=== PATIENT | female | born 1945 ===

== ENCOUNTER 2016-08-05 14:06 | Inpatient (IN) | payer MEDICARE, MEDICAID ==
[2016-08-05] MEDS ORDERED: Aspirin 325 mg EC Tablets PO STA (16:34)
[2016-08-05 16:45] LABS: BASO % 0.3 % (0.0-2.0); EOS # 0.1 K/uL (0.0-0.7); EOS % 0.6 % (0.0-4.0); HEMATOCRIT 38.2 % (34.0-47.0); LYMPH # 1.4 K/uL (1.0-4.3); LYMPH % 14.8 % (20.0-40.0); MEAN CELL VOLUME 83.2 fL (81.0-99.0); MEAN CORPUSCULAR HGB CONC 33.6 g/dL (33.0-37.0); MEAN PLATELET VOLUME 9.4 fL (7.2-11.7); MONO # 0.6 K/uL (0.0-0.8); MONO % 6.2 % (0.0-10.0); RED CELL DISTRIBUTION WIDTH 14.1 % (11.5-14.5); WHITE BLOOD COUNT 9.3 K/uL (4.8-10.8)
[2016-08-05 16:50] LABS: CHLORIDE 94 mmol/L (98-107); SODIUM 138 mmol/L (132-148)
[2016-08-05 16:51] LABS: POTASSIUM 4.3 mmol/L (3.6-5.2)
[2016-08-05 16:53] LABS: ALB/GLOB RATIO 1.3 (1.0-2.1); ALKALINE PHOSPHATASE 93 U/L (38-126); ALT/SGPT 24 U/L (9-52); AST/SGOT 17 U/L (14-36); BILIRUBIN,TOTAL 0.8 mg/dL (0.2-1.3); BLOOD UREA NITROGEN 14 mg/dL (7-17); CARBON DIOXIDE 32 mmol/L (22-30); GFR AFRICAN-AMERICAN > 60; GLUCOSE,RANDOM 81 mg/dL (65-105); TOTAL PROTEIN 7.3 g/dL (6.3-8.3)
[2016-08-05 16:54] LABS: CALCIUM 9.1 mg/dl (8.6-10.4)
[2016-08-05 17:03] LABS: RBC URINE 2 /hpf (0-3); URINE BACTERIA FEW (<OCC); URINE BILIRUBIN NEGATIVE (NEGATIVE); URINE BLOOD NEGATIVE (NEGATIVE); URINE COLOR Yellow (YELLOW); URINE GLUCOSE (UA) NORMAL (Normal); URINE KETONE NEGATIVE (NEGATIVE); URINE LEUKOCYTE ESTERASE TRACE Leu/uL (Negative); URINE PROTEIN NEGATIVE (NEGATIVE); URINE UROBILINOGEN NORMAL mg/dL (0.2-1.0); WBC URINE 22 /hpf (0-5)
--- NOTE | 2016-08-05 17:31 | C.PDOC ---
History Of Present Illness The patient, a 70 y/o female whose PMHx includes Asthma, presents to the ED for evaluation of chest pain which began around 2 days ago. Patient also reports that her pain radiates to her back. Otherwise, she denies fever, chills, shortness of breath, cough, nausea, vomiting, upper/lower extremity numbness/ weakness. Time Seen by Provider: 08/05/16 15:54 Chief Complaint (Nursing): Shortness Of Breath History Per: Patient History/Exam Limitations: no limitations Onset/Duration Of Symptoms: Days (2) Current Symptoms Are (Timing): Still Present Quality: "Pain" Current Respiratory Medications: See Home Med List Associated Symptoms: denies: Fever, Chills, Bloody Cough, Productive Cough, Ankle/Leg Swelling Additional History Per: Patient Past Medical History Reviewed: Historical Data, Nursing Documentation, Vital Signs Vital Signs: Last Vital Signs Temp 98.0 F 08/05/16 15:14 Pulse 73 08/05/16 15:14 Resp 16 08/05/16 15:14 BP 135/60 08/05/16 15:14 Pulse Ox 95 08/05/16 17:33 - Medical History PMH: Asthma, Osteoporosis Surgical History: Appendectomy, Cholecystectomy Family History: States: Unknown Family Hx - Social History Hx Tobacco Use: No Hx Alcohol Use: No Hx Substance Use: No - Immunization History Hx Tetanus Toxoid Vaccination: No Hx Influenza Vaccination: Yes Hx Pneumococcal Vaccination: Yes Review Of Systems Except As Marked, All Systems Reviewed And Found Negative. Constitutional: Negative for: Fever, Chills Cardiovascular: Positive for: Chest Pain Respiratory: Negative for: Cough, Shortness of Breath Gastrointestinal: Negative for: Nausea, Vomiting Musculoskeletal: Positive for: Back Pain Neurological: Negative for: Weakness, Numbness Physical Exam - Physical Exam Appears: Non-toxic, No Acute Distress Skin: Normal Color, Warm, Dry Head: Atraumatic Eye(s): bilateral: Normal Inspection Oral Mucosa: Moist Neck: Normal ROM, Supple Chest: Symmetrical, No Deformity, No Tenderness Cardiovascular: Rhythm Regular, No Murmur Respiratory: Normal Breath Sounds, No Rales, No Rhonchi, No Wheezing, Other (+ speaking complete sentences) Back: Normal Inspection, No Vertebral Tenderness, No Paraspinal Tenderness Extremity: Normal ROM, No Tenderness, Capillary Refill (less than 2 seconds), No Deformity, No Swelling Pulses: Left Dorsalis Pedis: Normal, Right Dorsalis Pedis: Normal Neurological/Psych: Oriented x3, Normal Speech, Normal Cognition Gait: Steady ED Course And Treatment - Laboratory Results Result Diagrams: 08/05/16 16:40 08/05/16 16:40 ECG: Interpreted By Me, Viewed By Me ECG Rhythm: Sinus Rhythm ECG Interpretation: No Acute Changes Rate From EC O2 Sat by Pulse Oximetry: 95 (on RA) Pulse Ox Interpretation: Normal - Radiology CXR: Interpreted by Me CXR Interpretation: Yes: No Acute Disease Progress Note: labs, EKG, and CXR were ordered and reviewed. Patient received Aspirin PO. Awaiting lab results. The first set of cardiac enzymes - neg. Case was d/w who accepted patient to [facility] for observation. Disposition - Disposition Disposition: HOSPITALIZED Disposition Time: 18:57 Condition: FAIR - Clinical Impression Clinical Impression: Chest pain - PA / POWERHOUSE ELECTRICIAN / Resident Statement MD/DO has reviewed & agrees with the documentation as recorded. - Scribe Statement The provider has reviewed the documentation as recorded by the Scribe (Payton Case) All medical record entries made by the Scribe were at my direction and personally dictated by me. I have reviewed the chart and agree that the record accurately reflects my personal performance of the history, physical exam, medical decision making, and the department course for this patient. I have also personally directed, reviewed, and agree with the discharge instructions and disposition. Decision To Admit - Pt Status Changed To: Hospital Disposition Of: Observation - . Bed Request Type: Telemetry Admitting Physician: Khalida Quispe Patient Diagnosis: Chest pain
[2016-08-05 23:01] VITALS: RESP 20
[2016-08-06 07:29] LABS: HEMATOCRIT 38.4 % (34.0-47.0); MEAN CELL VOLUME 84.8 fL (81.0-99.0); MEAN CORPUSCULAR HEMOGLOBIN 27.5 pg (27.0-31.0); MEAN CORPUSCULAR HGB CONC 32.4 g/dL (33.0-37.0); MEAN PLATELET VOLUME 7.8 fL (7.2-11.7); RED CELL DISTRIBUTION WIDTH 14.2 % (11.5-14.5); WHITE BLOOD COUNT 7.2 K/uL (4.8-10.8)
[2016-08-06] MEDS ORDERED: Albuterol HFA 90 mcg/actuation (8 g) IH PRN (08:11)
[2016-08-06 08:13] LABS: THYROID STIMULATING HORMONE 2.48 mIU/L (0.46-4.68)
--- NOTE | 2016-08-06 10:34 | HP ---
CHIEF COMPLAINT: Chest pain. HISTORY OF PRESENT ILLNESS: The patient is a 70-year-old lady with past medical history of asthma, c grayson to the Emergency Room for evaluation of the chest pain. Pain, according to her, is going to her back. Denies fever. No nausea, vomiting, or diarrhea. No dizziness. No weakness. No hematuria, n o hematochezia. 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 The patient was seen on 08/05/16 in Emergency Room. PAST MEDICAL HISTORY: Asthma, osteoarthritis, appendectomy, cholecystectomy. FAMILY HISTORY: Father and mother noncontributory. HABITS: No smoking, no drugs, no ethanol. REVIEW OF SYSTEMS: The patient was seen and examined in the ER. At that moment, pain was not bad. No fever, no chills. No hematuria or hematochezia. No swelling of the leg. No coughing. No shortn ess of breath. Complaining about back pain. No numbness or weakness. All systems reviewed, found n egative except the above one. PHYSICAL EXAMINATION: VITAL SIGNS: Temperature 98, pulse 73, respiratory rate 16, blood pressure 135/60, and pulse oximetr y 95. HEENT: Head normocephalic, atraumatic. Eyes: PERRLA. Extraocular muscles intact. Conjunctivae cl ear. Nose patent. NECK: Supple. No carotid bruit, JVD or thyromegaly. CHEST: Bilaterally symmetrical. HEART: S1, S2 positive. LUNGS: Clear to auscultation. ABDOMEN: Soft. Bowel sounds present. No organomegaly. EXTREMITIES: No edema, no cyanosis. NEUROLOGIC: The patient is awake, alert, moving all 4 extremities. No focal deficit. LABORATORY DATA: White blood cells 9.3, hemoglobin 12.8, hematocrit 38.2, and platelets 218. Sodium 138, potassium 4.3, BUN 14, creatinine 0.7, glucose 81. ASSESSMENT AND PLAN: The patient is a 70-year-old lady with history of asthma came with chest pain. Chest x-ray done. It shows no acute disease. Aspirin given in Emergency Room. Cardiac enzymes are negative. The patient was put in telemetry. Cardiology consult called. The patient has history of osteoporosis, appendectomy, cholecystectomy. 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 The patient was see n in Emergency Room 08/05/16. Heart healthy diet given. Gastrointestinal and deep venous thrombosis prophylaxis. Repeat labs. We will follow up. Khalida Quispe MD cc: [id number] TT: 08/06/2016 10:33:49 tn
--- NOTE | 2016-08-06 10:44 | CP.PCM.CON ---
History of Present Illness - History of Present Illness History of Present Illness: Chest pain with shortness of breath for the last few days. Past Patient History - Infectious Disease Hx of Infectious Diseases: None - Past Medical History & Family History Past Medical History?: Yes - Past Social History Smoking Status: Never Smoked - CARDIAC Hx Cardiac Disorders: No - PULMONARY Hx Asthma: Yes - NEUROLOGICAL Hx Neurological Disorder: No - HEENT Hx HEENT Problems: No - RENAL Hx Chronic Kidney Disease: No - ENDOCRINE/METABOLIC Hx Endocrine Disorders: No - HEMATOLOGICAL/ONCOLOGICAL Hx Blood Disorders: No - INTEGUMENTARY Hx Dermatological Problems: No - MUSCULOSKELETAL/RHEUMATOLOGICAL Hx Falls: No Hx Osteoporosis: Yes - GASTROINTESTINAL Hx Gastrointestinal Disorders: No - GENITOURINARY/GYNECOLOGICAL Hx Genitourinary Disorders: No - PSYCHIATRIC Hx Psychophysiologic Disorder: No Hx Substance Use: No - SURGICAL HISTORY Hx Appendectomy: Yes Hx Cholecystectomy: Yes - ANESTHESIA Hx Anesthesia: Yes Hx Anesthesia Reactions: No Hx Malignant Hyperthermia: No Meds Allergies/Adverse Reactions: Allergies Allergy/AdvReac Type Severity Reaction Status Date / Time No Known Allergies Allergy Verified 08/05/16 14:15 - Medications Medications: Current Medications Albuterol (Ventolin Hfa 90 Mcg/Actuation (8 G)) 1 puff IH Q6H PRN PRN Reason: asthma Aspirin (Ecotrin) 81 mg PO DAILY HUGO Enoxaparin Sodium (Lovenox) 40 mg SC DAILY HUGO Famotidine (Pepcid) 40 mg PO DAILY HUGO Physical Exam - Head Exam Head Exam: NORMAL INSPECTION - Neck Exam Neck exam: Positive for: Normal Inspection - Respiratory Exam Respiratory Exam: Decreased Breath Sounds - Cardiovascular Exam Cardiovascular Exam: REGULAR RHYTHM - GI/Abdominal Exam GI & Abdominal Exam: Normal Bowel Sounds - Extremities Exam Extremities exam: Positive for: normal inspection - Neurological Exam Neurological exam: Oriented x3 Results - Vital Signs Recent Vital Signs: Last Vital Signs Temp 97.4 F L 08/06/16 07:00 Pulse 61 08/06/16 09:08 Resp 20 08/06/16 07:00 BP 116/71 08/06/16 07:00 Pulse Ox 96 08/06/16 07:00 - Labs Result Diagrams: 08/06/16 07:00 08/05/16 16:40 Labs: Laboratory Results - last 24 hr 08/05/16 08/06/16 22:14 07:00 WBC 7.2 RBC 4.52 Hgb 12.4 Hct 38.4 MCV 84.8 MCH 27.5 MCHC 32.4 L RDW 14.2 Plt Count 237 MPV 7.8 Total Creatine Kinase 24 L 27 L CK-MB (Mass) < 0.22 < 0.22 Troponin I, Quant < 0.0120 < 0.0120 Triglycerides 129 D Cholesterol 173 LDL Cholesterol Direct 99 HDL Cholesterol 41 TSH 3rd Generation 2.48 - EKG Data EKG comments: Normal sinus rhythm. Assessment & Plan (1) Chest pain Assessment and Plan: Patient with history of asthma who have/had normal LV systolic function with mild A R, Her work-up is negative so far. EKG is unremarkable. May be asthma exacerbation? Rule out ACS. Continue ASA. Status: Acute
[2016-08-06] MEDS: Enoxaparin 40 mg Syringe SC SCH (13:27)
--- NOTE | 2016-08-06 18:20 | RAD ---
PROCEDURE: CHEST RADIOGRAPH, 1 VIEW HISTORY: chest pain COMPARISON: Comparison chest dated 04/11/2016. FINDINGS: LUNGS: Poor inspiration with low lung volumes, mild crowded bronchovascular markings and mild bibasilar atelectasis. PLEURA: No pneumothorax or pleural fluid seen. CARDIOVASCULAR: Normal. OSSEOUS STRUCTURES: Mild multilevel degenerative spondylosis of the thoracic spine. Mild degenerative changes both shoulder girdles. VISUALIZED UPPER ABDOMEN: Normal. OTHER FINDINGS: None. IMPRESSION: Poor inspiration with low lung volumes, mild crowded bronchovascular markings and mild bibasilar atelectasis.
[2016-08-06] MEDS: Naproxen 550 mg Tab PO SCH (22:16)
[2016-08-07 08:43] VITALS: O2SAT 97
[2016-08-07] MEDS: Enoxaparin 40 mg Syringe SC SCH (09:15)
[2016-08-07] MEDS: Naproxen 550 mg Tab PO SCH (09:15)
--- NOTE | 2016-08-07 10:37 | PN ---
DATE: 08/06/2016 The patient is a 70-year-old female. The patient is seen and examined on the bedside. Feeling a little bit better. No nausea, vomiting, diarrhea. No hematuria, no hematochezia. No headache, no dizziness, no fever, no chills. PHYSICAL EXAMINATION: VITAL SIGNS: Temperature 97.1, pulse 63, blood pressure 99/62, respiratory rate 20. HEENT: Head normocephalic, atraumatic. Eyes: PERRLA. Extraocular muscles intact. Conjunctivae clear. Eyelids unremarkable. Nose patent. Mucous membranes moist. NECK: Supple. No carotid bruit, no JVD, no thyromegaly. CHEST: Bilaterally symmetrical. HEART: S1, S2 positive. LUNGS: Clear to auscultation. ABDOMEN: Soft. Bowel sounds positive. No organomegaly. EXTREMITIES: No edema, no cyanosis. NEUROLOGIC: The patient is awake, alert, moving all 4 extremities. No focal deficits. MEDICATIONS: Ecotrin, Lovenox, Pepcid, Ventolin. LABORATORIES: White blood cells 7.2, hemoglobin 12.4, hematocrit 38.4, platelets 234. Sodium 138, potassium 4.3, BUN 14, creatinine 0.7, AST 17, ALT 24. Triglyceride 129, cholesterol 173. ASSESSMENT AND PLAN: The patient is a 70-year-old lady with nitrites positive, urinary tract infection. Came with chest pain. Seen by Dr. Gregg Vivas, inspector of weights and measures. The patient has history of asthma, who has had normal left ventricular systolic function , Her workup is negative so far. EKG is unremarkable. Maybe asthma exacerbation, rule out acute coronary syndrome. Continue aspirin. As per Dr. Vivas, looks like pain is musculoskeletal, as per inspector of weights and measures. Osteoarthritis. We will give some nonsteroidal anti- inflammatory drug and see the affect. If inspector of weights and measures clears, we will discharge patient home tomorrow. Continue present treatment. We will follow up. Khalida Quispe MD cc: [id number] TT: 08/07/2016 10:37:05 Confirmation # [id number] Dictation # [id number] en MTDD
[2016-08-07 11:27] VITALS: BP 116/60; PULSE 67; TEMP 97.6
--- NOTE | 2016-08-07 21:04 | DS ---
CHIEF COMPLAINT: Chest pain. HISTORY OF PRESENT ILLNESS: The patient is a 70-year-old lady with past medical history of asthma. Came to Emergency Room for evaluation of the chest pain. According to patient, pain from the chest i s going to the back. Denies nausea, vomiting, diarrhea, fever, chills. We admitted the . Did cardi ology consult with Dr. Vivas. According to him, patient has history of asthma, has normal left ventr icular systolic function with mild AR. Her workup is negative so far. EKG is unremarkable. Maybe a sthma exacerbation. Rule out acute coronary syndrome. Continue aspirin. History of urinary tract i nfection. As per Dr. Vivas, looks like pain is musculoskeletal, osteoarthritis. I gave NSAIDs overn ight. The patient's pain got better. The patient was cleared by the sales associate for discharge home with home medication and with Motrin [id number] and follow up with the primary care physician. Discussion done with the patient, will follow up as outpatient. Khalida Quispe MD cc: [id number] TT: 08/07/2016 21:03:42 sn
--- NOTE | 2016-08-07 23:45 | CARD ---
APPROVED REPORT EKG Measurement Heart [id number] VT [id number] <Conclusion> Normal sinus rhythm Normal ECG
== END 2016-08-07 14:40 | disposition home or self-care (01) | DRG 202 ==
LOC: C.ER 14:06 → C.9E 18:58 → C.6T 19:42 → OBSVTOIN 08-06 21:40
PROVIDERS: ADMIT Internal Medicine; ATTEND Internal Medicine
DX: J45.901 Unspecified asthma with (acute) exacerbation (principal); N39.0 Urinary tract infection, site not specified; M19.90 Unspecified osteoarthritis, unspecified site; M81.0 Age-related osteoporosis without current pathological fracture; Z87.440 Personal history of urinary (tract) infections; R07.89 Other chest pain

== ENCOUNTER 2017-01-02 12:12 | Emergency (ER) | payer MEDICARE, MEDICAID ==
[2017-01-02 12:54] VITALS: RESP 18
[2017-01-02 13:07] VITALS: BP 142/80; PULSE 82; TEMP 98; O2SAT 97
[2017-01-02 14:02] LABS: RBC URINE 1 /hpf (0-3); URINE BACTERIA RARE (<OCC); URINE BILIRUBIN NEGATIVE (NEGATIVE); URINE BLOOD NEGATIVE (NEGATIVE); URINE COLOR Yellow (YELLOW); URINE GLUCOSE (UA) NORMAL (Normal); URINE HYALINE CAST 0-2 /lpf (0-2); URINE KETONE NEGATIVE (NEGATIVE); URINE LEUKOCYTE ESTERASE NEG Leu/uL (Negative); URINE PROTEIN NEGATIVE (NEGATIVE); URINE UROBILINOGEN NORMAL mg/dL (0.2-1.0); WBC URINE 2 /hpf (0-5)
--- NOTE | 2017-01-02 14:21 | C.PDOC ---
History Of Present Illness 71 yo female come in for evaluation of Right sided lower back pain for past 5 days associated with pain on urination. Otherwise, pt denies fever, chills, abd. pain, N/V, denies hematuria, vaginal irritation or discharges. Ambulate to ED for evaluation, not in any apparent distress. Time Seen by Provider: 01/02/17 12:58 Chief Complaint (Nursing): Female Genitourinary History Per: Patient Past Medical History Reviewed: Historical Data, Nursing Documentation, Vital Signs Vital Signs: Last Vital Signs Temp 98.0 F 01/02/17 13:03 Pulse 82 01/02/17 13:03 Resp 18 01/02/17 13:03 BP 142/80 01/02/17 13:03 Pulse Ox 97 01/02/17 13:03 - Medical History PMH: Asthma, Osteoporosis Denies: Diabetes, Chronic Kidney Disease Surgical History: Appendectomy, Cholecystectomy Family History: States: No Known Family Hx - Social History Hx Tobacco Use: No Hx Alcohol Use: No Hx Substance Use: No - Immunization History Hx Tetanus Toxoid Vaccination: No Hx Influenza Vaccination: Yes Hx Pneumococcal Vaccination: Yes Review Of Systems Except As Marked, All Systems Reviewed And Found Negative. Constitutional: Negative for: Fever, Chills ENT: Negative for: Throat Pain, Throat Swelling Gastrointestinal: Negative for: Nausea, Vomiting, Abdominal Pain, Diarrhea Genitourinary: Positive for: Dysuria, Frequency. Negative for: Incontinence, Hematuria, Vaginal Discharge Musculoskeletal: Negative for: Back Pain Skin: Negative for: Rash Neurological: Negative for: Weakness, Numbness, Altered Mental Status, Headache Physical Exam - Physical Exam Appears: Well, Non-toxic, No Acute Distress Skin: Normal Color, Warm, No Rash Throat: No Erythema Neck: Supple Gastrointestinal/Abdominal: Soft, No Tenderness, No Distention, No Guarding Back: No CVA Tenderness, Paraspinal Tenderness (Right sided ) Extremity: No Pedal Edema, No Deformity Neurological/Psych: Oriented x3, Normal Speech ED Course And Treatment O2 Sat by Pulse Oximetry: 97 Progress Note: On re-evaluation, pt is afebrile, hemodynamicaly stable. non- toxic. Tolerate Po well in ED. Neck: Supple. Abd: benign. Back: (-) CVA tenderness. UA w/(+)nitrates. Pt has clinical findings c/w UTI. Ucx-pending. Pt advised and ref. to f/u with PMD in 2-3 days for re-evaluation. Return to ED if any worsening or new changes. Disposition Counseled Patient/Family Regarding: Studies Performed, Diagnosis, Need For Followup, Rx Given - Disposition Referrals: Tequila Brown MD [Non-Staff] - Disposition Time: 13:45 Condition: STABLE Additional Instructions: Encourage fluids Cranberry supplement take medication as prescribed Follow up with PMD in 2-3 days for re-evaluation. return to ED at any time if any worsening or new changes. Prescriptions: Ciprofloxacin [Cipro] 1 tab PO BID #14 tab Cranberry Fruit Extract [Cranberry] 500 mg PO BID #30 capsule Instructions: Urinary Tract Infection in Women (ED) Forms: [facility] (Latvian) Print Language: DOMINICAN - Clinical Impression Clinical Impression: UTI (urinary tract infection)
== END 2017-01-02 14:34 | disposition home or self-care (01) ==
LOC: C.ER 12:12
DX: N39.0 Urinary tract infection, site not specified (principal)

== ENCOUNTER 2017-08-03 12:18 | Emergency (ER) | payer MEDICARE, MEDICAID ==
[2017-08-03 12:21] VITALS: RESP 20
--- NOTE | 2017-08-03 12:58 | C.PDOC ---
History Of Present Illness 71 year old female with PMHx of asthma non smoker presents to the ED for evaluation of increased difficulty breathing, non productive cough, chills, body aches. Patient admits to SOB even at rest. Patient lives with her daughter and has been at the house all week due to feeling weak. Patient denies fever, nausea, vomit, diarrhea, back pain, numbness. Chief Complaint (Nursing): Chest Pain History Per: Patient History/Exam Limitations: no limitations Onset/Duration Of Symptoms: Days Current Symptoms Are (Timing): Still Present Quality: "Pain" Modifying Factors: None Exacerbating Factors: None Alleviating Factors: None Recent travel outside of the [place]: No Additional History Per: Patient Past Medical History Reviewed: Historical Data, Nursing Documentation, Vital Signs Vital Signs: Last Vital Signs Temp 97.8 F 08/03/17 16:06 Pulse 83 08/03/17 16:06 Resp 20 08/03/17 16:06 BP 124/76 08/03/17 16:06 Pulse Ox 98 08/04/17 09:12 - Medical History PMH: Asthma, Osteoporosis Denies: Diabetes, Chronic Kidney Disease Surgical History: Appendectomy, Cholecystectomy Family History: States: Unknown Family Hx - Social History Hx Tobacco Use: No Hx Alcohol Use: No Hx Substance Use: No - Immunization History Hx Tetanus Toxoid Vaccination: No Hx Influenza Vaccination: Yes Hx Pneumococcal Vaccination: Yes Review Of Systems Constitutional: Negative for: Fever, Chills ENT: Negative for: Throat Pain Respiratory: Positive for: Cough, Shortness of Breath Gastrointestinal: Negative for: Nausea, Vomiting, Abdominal Pain Musculoskeletal: Negative for: Back Pain Skin: Negative for: Rash Neurological: Positive for: Weakness. Negative for: Numbness Physical Exam - Physical Exam Appears: Non-toxic, No Acute Distress Skin: Normal Color, Warm, Dry Head: Atraumatic, Normacephalic Eye(s): bilateral: Normal Inspection Nose: No Discharge Oral Mucosa: Moist Neck: Normal ROM, Supple Chest: Symmetrical Cardiovascular: Rhythm Regular, No Murmur Respiratory: Decreased Breath Sounds (mild), No Rales, No Rhonchi, No Wheezing Gastrointestinal/Abdominal: Soft, No Tenderness, No Guarding, No Rebound Extremity: Normal ROM, No Tenderness, No Swelling Neurological/Psych: Oriented x3 Gait: Steady ED Course And Treatment - Laboratory Results Result Diagrams: 08/03/17 13:05 08/03/17 13:05 ECG: Interpreted By Me, Viewed By Me ECG Rhythm: Sinus Rhythm ECG Interpretation: Normal Interpretation Of ECG: No ectopy, no acute ST or T wave abnormalities Rate From EC O2 Sat by Pulse Oximetry: 98 (On RA) Pulse Ox Interpretation: Normal Medical Decision Making Medical Decision Making: Impression: URI, rule out pneumonia, mild broncho spams Plan: * EKG * CXR * Labs * Blood culture * Nebulizer treatment * UA Patient states she feels better after reevaluation and will be D/C home with a diagnosis of bronchitis. Disposition - Disposition Referrals: [facility] [Outside] Disposition: HOME/ ROUTINE Disposition Time: 09:13 Condition: GOOD Prescriptions: Azithromycin [Zithromax] 250 mg PO DAILY #6 tab Instructions: Acute Bronchitis Forms: [facility] (Danish) Print Language: [place] - Clinical Impression Clinical Impression: Bronchitis - Scribe Statement The provider has reviewed the documentation as recorded by the Scribe Andre Moore All medical record entries made by the Scribe were at my direction and personally dictated by me. I have reviewed the chart and agree that the record accurately reflects my personal performance of the history, physical exam, medical decision making, and the department course for this patient. I have also personally directed, reviewed, and agree with the discharge instructions and disposition.
[2017-08-03 13:10] LABS: BASO % 0.3 % (0.0-2.0); EOS # 0.1 K/uL (0.0-0.7); EOS % 0.7 % (0.0-4.0); HEMOGLOBIN 13.1 g/dL (11.0-16.0); LYMPH # 1.3 K/uL (1.0-4.3); LYMPH % 16.8 % (20.0-40.0); MEAN CELL VOLUME 84.5 fL (81.0-99.0); MEAN CORPUSCULAR HEMOGLOBIN 28.4 pg (27.0-31.0); MEAN CORPUSCULAR HGB CONC 33.6 g/dL (33.0-37.0); MEAN PLATELET VOLUME 8.4 fL (7.2-11.7); MONO # 0.6 K/uL (0.0-0.8); MONO % 7.5 % (0.0-10.0); NEUT # 5.7 K/uL (1.8-7.0); NEUT % 74.7 % (50.0-75.0); RBC 4.61 Mil/uL (3.80-5.20); RED CELL DISTRIBUTION WIDTH 14.2 % (11.5-14.5); WHITE BLOOD COUNT 7.7 K/uL (4.8-10.8)
[2017-08-03 13:24] LABS: ALB/GLOB RATIO 1.3 (1.0-2.1); ALBUMIN 4.2 g/dL (3.5-5.0); ALT/SGPT 17 U/L (9-52); AST/SGOT 19 U/L (14-36); BLOOD UREA NITROGEN 15 mg/dL (7-17); CALCIUM 9.1 mg/dl (8.6-10.4); GFR AFRICAN-AMERICAN 59; GFR NON-AFRICAN AMERICAN 49
[2017-08-03 13:43] LABS: SQUAMOUS EPITHIAL 3 /hpf (0-5); URINE BILIRUBIN NEGATIVE (NEGATIVE); URINE BLOOD NEGATIVE (NEGATIVE); URINE CLARITY Clear (Clear); URINE COLOR Yellow (YELLOW); URINE GLUCOSE (UA) NORMAL (Normal); URINE LEUKOCYTE ESTERASE NEG Leu/uL (Negative); URINE PROTEIN 1+ mg/dL (NEGATIVE); URINE UROBILINOGEN NORMAL mg/dL (0.2-1.0)
--- NOTE | 2017-08-03 14:56 | RAD ---
PROCEDURE: CHEST RADIOGRAPH, 1 VIEW HISTORY: SOB COMPARISON: 08/05/2016 FINDINGS: LUNGS: Clear. PLEURA: No pneumothorax or pleural fluid seen. CARDIOVASCULAR: No radiographic findings to suggest acute or significant cardiovascular disease. OSSEOUS STRUCTURES: No significant abnormalities. VISUALIZED UPPER ABDOMEN: Normal. OTHER FINDINGS: None. IMPRESSION: No active disease. No acute/significant interval changes.
[2017-08-03 16:08] VITALS: BP 124/76; PULSE 83; TEMP 97.8
[2017-08-04 09:13] VITALS: O2SAT 98
== END 2017-08-03 16:06 | disposition home or self-care (01) ==
LOC: C.ER 12:18
DX: J40 Bronchitis, not specified as acute or chronic (principal)

== ENCOUNTER 2017-11-29 12:56 | Inpatient (IN) | payer MEDICARE, MEDICAID ==
[2017-11-29 13:18] VITALS: BMI 28.3
--- NOTE | 2017-11-29 13:34 | C.PDOC ---
History Of Present Illness 72-year-old female presents to the ER with complaints of cough, fever, SOB, and chest pain, on and off for the past 3 weeks. Patient is also complaining of diarrhea and urinary frequency. Today she developed a headache, felt light- headed, and noted the chest pain worsened so she came to the ER for further evaluation. Patient denies having any PMHx. Also denies dizziness, palpitations , visual changes, weakness, nausea, vomiting, or other associated symptoms. Time Seen by Provider: 11/29/17 13:21 Chief Complaint (Nursing): Chest Pain History Per: Patient History/Exam Limitations: no limitations Onset/Duration Of Symptoms: Days Current Symptoms Are (Timing): Still Present Past Medical History Reviewed: Historical Data, Nursing Documentation, Vital Signs Vital Signs: Last Vital Signs Temp 97.9 F 11/29/17 13:13 Pulse 65 11/29/17 15:27 Resp 18 11/29/17 15:27 BP 115/62 11/29/17 15:27 Pulse Ox 100 11/29/17 15:27 - Medical History PMH: Asthma, Osteoporosis Denies: Diabetes, Chronic Kidney Disease Surgical History: Appendectomy, Cholecystectomy Family History: States: Unknown Family Hx - Social History Hx Tobacco Use: No Hx Alcohol Use: No Hx Substance Use: No - Immunization History Hx Tetanus Toxoid Vaccination: No Hx Influenza Vaccination: No Hx Pneumococcal Vaccination: No Review Of Systems Except As Marked, All Systems Reviewed And Found Negative. Constitutional: Positive for: Fever Eyes: Negative for: Vision Change Cardiovascular: Positive for: Chest Pain, Light Headedness Respiratory: Positive for: Cough, Shortness of Breath Gastrointestinal: Negative for: Nausea, Vomiting Neurological: Positive for: Headache. Negative for: Weakness, Dizziness Physical Exam - Physical Exam Appears: Non-toxic, No Acute Distress Skin: Normal Color, Warm, Dry Head: Atraumatic, Normacephalic Eye(s): bilateral: Normal Inspection, PERRL, EOMI Nose: Normal Oral Mucosa: Moist Neck: Normal ROM, Supple Chest: Symmetrical Cardiovascular: Rhythm Regular, No Murmur Respiratory: Normal Breath Sounds, No Rales, No Rhonchi, No Wheezing Gastrointestinal/Abdominal: Soft, No Tenderness Extremity: Bilateral: Atraumatic, Normal Color And Temperature, Normal ROM Pulses: Left Radial: Normal, Right Radial: Normal Neurological/Psych: Oriented x3, Normal Speech, Normal Cranial Nerves (2-12 intact), Normal Motor, Normal Sensation Gait: Steady ED Course And Treatment - Laboratory Results Result Diagrams: 11/29/17 13:39 11/29/17 13:39 Lab Interpretation: Abnormal (BUN 54, Cr 7.0, changed from last July when they were normal.) ECG: Interpreted By Me, Viewed By Me ECG Rhythm: Sinus Rhythm (NSR at 75 bpm, no acute changes) ECG Interpretation: No Acute Changes Rate From EC O2 Sat by Pulse Oximetry: 96 - Radiology CXR: Viewed By Me, Read By Radiologist CXR Interpretation: Yes: No Acute Disease Reevaluation Time: 15:48 Reassessment Condition: Improved (Patient did have chest qand back pain improved with Morphine IV.) - Physician Consult Information Time Consulting Physician Contacted: 15:51 Physician Contacted: Naun Case Outcome Of Conversation: Patient to be admitted for acute renal failure. Medical Decision Making Medical Decision Making: Time: 13:25 Initial Plan: --Blood work --Urinalysis --Chest x-ray --EKG Disposition - Disposition Disposition: HOSPITALIZED Disposition Time: 15:52 Condition: SERIOUS - POA Present On Arrival: None - Clinical Impression Clinical Impression: Acute renal failure - Scribe Statement The provider has reviewed the documentation as recorded by the Jaret Vang Provider Attestation: All medical record entries made by the Jaret were at my direction and personally dictated by me. I have reviewed the chart and agree that the record accurately reflects my personal performance of the history, physical exam, medical decision making, and the department course for this patient. I have also personally directed, reviewed, and agree with the discharge instructions and disposition.
--- NOTE | 2017-11-29 13:39 | RAD ---
Date of service: 11/29/2017 PROCEDURE: CHEST RADIOGRAPH, 1 VIEW HISTORY: chest pain COMPARISON: Chest radiograph dated 08/03/2017. FINDINGS: LUNGS: Clear. PLEURA: No pneumothorax or pleural fluid seen. CARDIOVASCULAR: Atherosclerotic aortic calcifications. Cardiomediastinal silhouette stably enlarged. OSSEOUS STRUCTURES: Unchanged. VISUALIZED UPPER ABDOMEN: Normal. OTHER FINDINGS: None. IMPRESSION: No active disease.
[2017-11-29 13:49] LABS: BASO % 0.2 % (0.0-2.0); EOS % 0.4 % (0.0-4.0); HEMOGLOBIN 12.4 g/dL (11.0-16.0); LYMPH # 0.8 K/uL (1.0-4.3); LYMPH % 9.3 % (20.0-40.0); MEAN CORPUSCULAR HEMOGLOBIN 28.3 pg (27.0-31.0); MEAN CORPUSCULAR HGB CONC 34.6 g/dL (33.0-37.0); MONO # 0.5 K/uL (0.0-0.8); MONO % 6.3 % (0.0-10.0); NEUT # 6.9 K/uL (1.8-7.0); NEUT % 83.8 % (50.0-75.0); NRBC % 0.1 % (0.0-2.0); PLATELET COUNT 273 K/uL (130-400); RBC 4.41 Mil/uL (3.80-5.20); RED CELL DISTRIBUTION WIDTH 14.1 % (11.5-14.5); WHITE BLOOD COUNT 8.2 K/uL (4.8-10.8)
[2017-11-29 13:52] LABS: MEAN CELL VOLUME 81.8 fL (81.0-99.0)
[2017-11-29 14:00] LABS: ALBUMIN 4.2 g/dL (3.5-5.0); BLOOD UREA NITROGEN 54 mg/dL (7-17); CALCIUM 8.7 mg/dl (8.6-10.4); GFR AFRICAN-AMERICAN 7; GFR NON-AFRICAN AMERICAN 6
[2017-11-29 14:01] LABS: ALB/GLOB RATIO 1.5 (1.0-2.1); ALT/SGPT 27 U/L (9-52); AST/SGOT 20 U/L (14-36)
[2017-11-29 14:13] LABS: EOSINOPHIL 3 % (0-4); LYMPHOCYTE 10 % (20-40); MONOCYTE 6 % (0-10); NEUTROPHIL 81 % (50-75); PLATELET ESTIMATE NORMAL (NORMAL); TOTAL CELLS COUNTED 100
[2017-11-29 15:30] LABS: SQUAMOUS EPITHIAL < 1 /hpf (0-5); URINE BILIRUBIN NEGATIVE (NEGATIVE); URINE BLOOD 1+ (NEGATIVE); URINE CLARITY Clear (Clear); URINE COLOR Straw (YELLOW); URINE GLUCOSE (UA) NORMAL (Normal); URINE LEUKOCYTE ESTERASE NEG Leu/uL (Negative); URINE PROTEIN NEGATIVE (NEGATIVE); URINE UROBILINOGEN NORMAL mg/dL (0.2-1.0)
--- NOTE | 2017-11-29 19:19 | CP.PCM.HP ---
History of Present Illness - History of Present Illness History of Present Illness: 72 yr old female w/ PMHx of Asthma & Osteoporosis present to ED with 3 weeks of SOB & 1 week of dry cough. Pt also states she has chest pain that is radiating to her arms bilateral, back & stomach. Pt is unable to void completely for the past several days and has had diarrhea for the past few days. Pt saw PMD Monday, 11/27 and was told symptoms would self subside and to come to ED if symptoms worsened. Pt denies nausea, vomitting, but admits to subjective fevers for the past few days. Pt states she has not eaten for the past 3 days due to a decreased in appetite. PMD: Dr. Morales PMHx: Asthma, Osteoporosis Medication: Albuterol pump PSHx: Appendectomy (unsure of date) & Cholecystectomy (unsure of date) Allergies: NKDA Social: Pt lives with daughter, denies smoking/tobacco use, illicet drug use, ETOH use, and is retired. Both parents were healthy when . Present on Admission - Present on Admission Any Indicators Present on Admission: No History of DVT/PE: No History of Uncontrolled Diabetes: No Urinary Catheter: No Decubitus Ulcer Present: No Review of Systems - Constitutional Constitutional: Chills, Fever. absent: Headache, Lethargy, Malaise - EENT Eyes: absent: Blurred Vision, Change in Vision Ears: absent: Ear Pain Nose/Mouth/Throat: Nasal Congestion, Dry Mouth - Cardiovascular Cardiovascular: Chest Pain, Dyspnea on Exertion, Pain Radiating to Arm/Neck/ Jaw. absent: Edema, Irregular Heart Rhythm, Leg Edema, Leg Ulcers, Syncope - Respiratory Respiratory: Cough, Dyspnea, Dyspnea on Exertion. absent: Wheezing, Snoring, Stridor, Pain on Inspiration - Gastrointestinal Gastrointestinal: Abdominal Pain, Diarrhea. absent: Constipation, Fecal Incontinence - Genitourinary Genitourinary: Change in Urinary Stream, Difficulty Urinating, Dysuria, Flank Pain, Voiding Freq/Small Amts - Neurological Neurological: absent: Abnormal Hearing, Confusion, Headaches, Loss of Vision - Psychiatric Psychiatric: absent: Abnormal Sleep Pattern - Hematologic/Lymphatic Hematologic: absent: Easy Bleeding, Easy Bruising Past Patient History - Infectious Disease Hx of Infectious Diseases: None - Tetanus Immunizations Tetanus Immunization: Unknown - Past Medical History & Family History Past Medical History?: Yes Pertinent Family History: Shun - Past Social History Smoking Status: Never Smoked Chewing Tobacco Use: No Cigar Use: No Alcohol: None Drugs: Denies Home Situation {Lives}: With Family - CARDIAC Hx Cardiac Disorders: No - PULMONARY Hx Asthma: Yes - NEUROLOGICAL Hx Neurological Disorder: No - HEENT Hx HEENT Problems: No - RENAL Hx Chronic Kidney Disease: No - ENDOCRINE/METABOLIC Hx Endocrine Disorders: No - HEMATOLOGICAL/ONCOLOGICAL Hx Blood Disorders: No - INTEGUMENTARY Hx Dermatological Problems: No - MUSCULOSKELETAL/RHEUMATOLOGICAL Hx Falls: No - GASTROINTESTINAL Hx Gastrointestinal Disorders: No - GENITOURINARY/GYNECOLOGICAL Hx Genitourinary Disorders: No - PSYCHIATRIC Hx Substance Use: No - SURGICAL HISTORY Hx Appendectomy: Yes Hx Cholecystectomy: Yes - ANESTHESIA Hx Anesthesia: Yes Hx Anesthesia Reactions: No Hx Malignant Hyperthermia: No Meds Allergies/Adverse Reactions: Allergies Allergy/AdvReac Type Severity Reaction Status Date / Time No Known Allergies Allergy Verified 11/29/17 13:12 Physical Exam - Constitutional Appears: Well, Non-toxic, No Acute Distress - Head Exam Head Exam: ATRAUMATIC, NORMAL INSPECTION - Eye Exam Eye Exam: EOMI, Normal appearance, PERRL Pupil Exam: NORMAL ACCOMODATION, PERRL - ENT Exam ENT Exam: Mucous Membranes Dry - Respiratory Exam Respiratory Exam: Clear to Auscultation Bilateral, NORMAL BREATHING PATTERN. absent: Rales, Rhonchi, Wheezes - Cardiovascular Exam Cardiovascular Exam: +S1, +S2. absent: Irregular Rhythm, Systolic Murmur - GI/Abdominal Exam GI & Abdominal Exam: Guarding, Normal Bowel Sounds - Extremities Exam Extremities exam: Positive for: normal inspection. Negative for: calf tenderness, pedal edema, tenderness - Back Exam Back exam: CVA tenderness (R) - Neurological Exam Neurological exam: Alert, CN II-XII Intact, Oriented x3 - Psychiatric Exam Psychiatric exam: Normal Affect, Normal Mood - Skin Skin Exam: Dry, Intact, Normal Color, Warm Results - Vital Signs Recent Vital Signs: Last Vital Signs Temp 97.9 F 11/29/17 13:13 Pulse 71 11/29/17 17:42 Resp 16 11/29/17 17:42 BP 123/32 L 11/29/17 17:42 Pulse Ox 100 11/29/17 17:42 - Labs Result Diagrams: 11/29/17 13:39 11/29/17 13:39 Labs: Laboratory Results - last 24 hr 11/29/17 11/29/17 11/29/17 13:39 13:39 15:23 WBC 8.2 RBC 4.41 Hgb 12.4 Hct 36.0 MCV 81.8 D MCH 28.3 MCHC 34.6 RDW 14.1 Plt Count 273 MPV 8.0 Neut % (Auto) 83.8 H Lymph % (Auto) 9.3 L [place] % (Auto) 6.3 Eos % (Auto) 0.4 Baso % (Auto) 0.2 Neut # (Auto) 6.9 Lymph # (Auto) 0.8 L [place] # (Auto) 0.5 Eos # (Auto) 0.0 Baso # (Auto) 0.0 Neutrophils % (Manual) 81 H Lymphocytes % (Manual) 10 L Monocytes % (Manual) 6 Eosinophils % (Manual) 3 Platelet Estimate Normal Sodium 139 Potassium 4.1 Chloride 101 Carbon Dioxide 22 Anion Gap 20 BUN 54 H Creatinine 7.0 H Est GFR ( Amer) 7 Est GFR (Non-Af Amer) 6 Random Glucose 124 H Calcium 8.7 Total Bilirubin 1.0 AST 20 ALT 27 Alkaline Phosphatase 93 Troponin I < 0.0120 Total Protein 7.0 Albumin 4.2 Globulin 2.8 Albumin/Globulin Ratio 1.5 Urine Color Straw Urine Clarity Clear Urine pH 5.0 Ur Specific [place] 1.006 Urine Protein Negative Urine Glucose (UA) Normal Urine Ketones Negative Urine Blood 1+ H Urine Nitrate Negative Urine Bilirubin Negative Urine Urobilinogen Normal Ur Leukocyte Esterase Neg Urine WBC (Auto) 1 Urine RBC (Auto) 1 Ur Squamous Epith Cells < 1 Assessment & Plan - Assessment and Plan (Free Text) Assessment: 72 yr old female w/ PMHx of Asthma & Osteoporosis present to ED with 3 weeks of SOB & 1 week of dry cough, chest pain, and diarrhea: 1) SHAHRAM: - Possibly due to dehydration vs pyleonephritis - BUN 54, Cr 7.0, normal renal tests 07/2017, Bun 15, Cr 1.1 - F/u Kidney/bladder U/S - Segura Cath ordered to monitor Ins/out - F/u Repeat UA, initial clean - Nephro consult - Levi, thank you for recs - Ceftriaxone 1g Q24 IV - NS @ 60 cc/hr 2) Shortness of Breath - Likely due to Bronchitis - Duonebs Q6 3) Chest Pain - EKG NSR - ROXANA X1 neg, F/u ROXANA @ 6pm & midnight - CXR - negative 4) Diarrhea - unclear etiology - F/u Legionella AG - F/u C diff tox 5) Prophylaxis - Heparin 500 U Q8 - SCDs
[2017-11-29] MEDS: Albuterol-Ipratrop 3 mg / 0.5 (3 ml) UD INH SCH (19:38)
[2017-11-29] MEDS: Sodium Chloride 0.9% 1,000 ML IV SCH (21:35)
[2017-11-29] MEDS: metroNIDAZOLE IV 500 mg/100 ml 500 MG/100 ML BAG IVPB SCH (21:42)
[2017-11-29 23:01] LABS: SQUAMOUS EPITHIAL 5 /hpf (0-5); URINE BILIRUBIN NEGATIVE (NEGATIVE); URINE BLOOD 1+ (NEGATIVE); URINE CLARITY Clear (Clear); URINE COLOR Straw (YELLOW); URINE GLUCOSE (UA) NORMAL (Normal); URINE LEUKOCYTE ESTERASE NEG Leu/uL (Negative); URINE PROTEIN NEGATIVE (NEGATIVE); URINE UROBILINOGEN NORMAL mg/dL (0.2-1.0)
[2017-11-29 23:24] LABS: CREATININE, RANDOM URINE 54.3 mg/dL
[2017-11-30] MEDS: metroNIDAZOLE IV 500 mg/100 ml 500 MG/100 ML BAG IVPB SCH ×3 (05:12→21:50)
--- NOTE | 2017-11-30 06:47 | CP.PCM.PN ---
Subjective - Date & Time of Evaluation Date of Evaluation: 11/30/17 Time of Evaluation: 07:45 - Subjective Subjective: PGY [address] Zhang Ruiz. Pt seen and examined at bedside. No overnight events, telemetry reviewed and no overnight events. Pt laying in bed, sleeping, no acute distress. Pt remains afebrile with wilkinson cath producing urine. Pt states she still has the lower abdominal pain and back pain. Pt denies chest pain, difficulty breathing, constipation, diarrhea, headaches. Objective - Vital Signs/Intake and Output Vital Signs (last 24 hours): Temp Pulse Resp BP Pulse Ox 98.3 F 82 20 101/62 99 11/29/17 23:15 11/29/17 23:15 11/29/17 23:15 11/29/17 23:15 11/29/17 23:15 Intake and Output: 11/29/17 11/30/17 18:59 06:59 Intake Total 100 Output Total 1100 Balance -1000 - Medications Medications: Current Medications Albuterol/Ipratropium (Duoneb 3 Mg/0.5 Mg (3 Ml) Ud) 3 ml INH RQ6 HUOG Last Admin: 11/29/17 19:38 Dose: 3 ml Heparin Sodium (Porcine) (Heparin) 5,000 units SC Q8 HUGO Last Admin: 11/30/17 05:12 Dose: 5,000 units Sodium Chloride (Sodium Chloride 0.9%) 1,000 mls @ 60 mls/hr IV .[id number] [facility] [place] Last Admin: 11/29/17 21:35 Dose: 60 mls/hr Metronidazole (Flagyl) 500 mg in 100 mls @ 100 mls/hr IVPB Q8H HUGO PRN Reason: Protocol Last Admin: 11/30/17 05:12 Dose: 100 mls/hr Ceftriaxone Sodium 1 gm/ (Sodium Chloride) 100 mls @ 100 mls/hr IVPB DAILY HUGO PRN Reason: Protocol Pneumococcal Polyvalent Vaccine (Pneumovax 23 Vaccine) 0.5 ml IM .ONCE ONE Stop: 12/01/17 10:01 - Labs Labs: 11/29/17 13:39 11/29/17 13:39 - Constitutional Appears: Well, Non-toxic, No Acute Distress - Eye Exam Eye Exam: Normal appearance Pupil Exam: NORMAL ACCOMODATION, PERRL - ENT Exam ENT Exam: Mucous Membranes Moist - Neck Exam Neck Exam: Normal Inspection - Respiratory Exam Respiratory Exam: Clear to Ausculation Bilateral, NORMAL BREATHING PATTERN. absent: Rales, Rhonchi, Wheezes - Cardiovascular Exam Cardiovascular Exam: +S1, +S2. absent: Irregular Rhythm, Murmur - GI/Abdominal Exam GI & Abdominal Exam: Soft, Normal Bowel Sounds Additional comments: Normal resoance on percussion, tender on plapation on lower abdomin (B/L), suprapubic tenderness. - Extremities Exam Extremities Exam: Normal Inspection. absent: Calf Tenderness, Pedal Edema, Tenderness - Back Exam Back Exam: CVA tenderness (R) - Neurological Exam Neurological Exam: Alert, Awake, Oriented x3 - Psychiatric Exam Psychiatric exam: Normal Affect, Normal Mood - Skin Skin Exam: Dry, Intact, Normal Color, Warm Assessment and Plan - Assessment and Plan (Free Text) Assessment: 1) SHAHRAM: - BUN remains elevated 54 -> 56, Cr elevated 7.0 -> 7.2, FENa 4.6 - FENa 4.6 - > possibly obstructive -> CT abd/ pelvs -> no obstruction - kidney/bladder U/S shows midley echogenic kidney - Possibly due to dehydration - Wilkinson Cath, overnight urine 1100mL - continue NS @ 60 cc/hr - Clinical exam supports pyleonephrits, UA shows Leukocyte est 1+, WBCs 10, continue Ceftriaxone 1g Q24 IV - F/u culture - NPO after midnight, Dr Sims will take for biopsy riki 12/01 2) Shortness of Breath - Likely due to Bronchitis - Duonebs Q6 - CXR clear, will follow up 3) Chest Pain - Less likley due to [place], possibly due to persistent cough, SOB - EKG NSR - ROXANA neg X3 - CXR - negative 4) Diarrhea - unclear etiology - Legionella AG negative - F/u C diff tox - Flagy 500 mg Q8 IV 5) Elevated LFTs - AST 20-> 66, ALT 27 ->64 - unclear etiology - trend LFTs 6) Prophylaxis - Heparin 5000U Q8 - SCDs
[2017-11-30 07:21] LABS: BASO % 0.2 % (0.0-2.0); EOS # 0.1 K/uL (0.0-0.7); EOS % 0.8 % (0.0-4.0); HEMOGLOBIN 11.6 g/dL (11.0-16.0); LYMPH # 0.8 K/uL (1.0-4.3); LYMPH % 11.5 % (20.0-40.0); MEAN CELL VOLUME 82.6 fL (81.0-99.0); MEAN CORPUSCULAR HGB CONC 33.9 g/dL (33.0-37.0); MEAN PLATELET VOLUME 8.4 fL (7.2-11.7); MONO # 0.5 K/uL (0.0-0.8); MONO % 7.8 % (0.0-10.0); NEUT # 5.4 K/uL (1.8-7.0); NEUT % 79.7 % (50.0-75.0); RBC 4.16 Mil/uL (3.80-5.20); RED CELL DISTRIBUTION WIDTH 13.9 % (11.5-14.5); WHITE BLOOD COUNT 6.8 K/uL (4.8-10.8)
[2017-11-30 07:24] LABS: ALB/GLOB RATIO 1.5 (1.0-2.1); ALBUMIN 3.9 g/dL (3.5-5.0); CALCIUM 8.5 mg/dl (8.6-10.4)
[2017-11-30] MEDS: Albuterol-Ipratrop 3 mg / 0.5 (3 ml) UD INH SCH ×3 (07:59→22:02)
--- NOTE | 2017-11-30 10:02 | CON ---
DATE: 11/30/2017 LOCATION: [facility]. NEPHROLOGY CONSULTATION HISTORY OF PRESENT ILLNESS: The patient is a 72-year-old female with past medical history of asthma and hyperlipidemia, presented to the ED with dyspnea for the past one week, found to have acute renal failure for which nephrology is being consulted. The patient reports having dyspnea for the past one plus week; has had associated cough; went to her PMD last week and was given some cough medicine, but denies being given any antibiotics; the patient also reporting that she has been having diarrhea about three times a day since the past one week; denies any vomiting; has had decreased p.o. intake during this period; patient does take pain meds intermittently and admits to using Motrin or Advil, but not since the past one week, reports having new right hip pain over the past two weeks. PAST MEDICAL HISTORY: As above. SOCIAL HISTORY: Denies smoking. FAMILY HISTORY: Denies any. REVIEW OF SYSTEMS: CONSTITUTIONAL: Decreased appetite. HEENT: No difficulty swallowing. RESPIRATORY: Per HPI. CARDIOVASCULAR: Reports some chest pain and palpitations lately. GI: As per HPI. : Reports decreased urination over the past several days, also with dysuria during this. EXTREMITIES: Denies any leg swelling. NEURO: Reports intermittent dizziness. SKIN: Denies any pruritus or rashes. PHYSICAL EXAMINATION: VITAL SIGNS: This evening, blood pressure 108/53, heart rate 86, respirations 20, temperature 97.9, O2 saturation 98% on nasal cannula oxygen. GENERAL: No distress. Conversing coherently in full sentences. HEENT: Moist mucous membranes. Nonicteric. No cervical lymphadenopathy. RESPIRATORY: Lungs clear to auscultation bilaterally. No rales or rhonchi. No wheezes. CARDIOVASCULAR: Heart sounds S1 and S2 normal. No murmurs. No gallops. No rubs. GASTROINTESTINAL: Abdomen is soft, nontender, and nondistended. GENITOURINARY: Suprapubic tenderness. Otherwise, no bladder distention. EXTREMITIES: No leg edema. NEURO: No asterixis. No resting tremor. SKIN: Warm. No cyanosis. PSYCHIATRIC: Normal mood. Normal affect. LABORATORY DATA: CBC: WBC 8.2, hemoglobin 12.4, hematocrit 36.0, platelets 273. Chemistry Panel: Sodium 139, potassium 4.1, chloride 101, bicarb 22, BUN 54, creatinine 7.0, increased from 1.1 in July 2017. Glucose 124, calcium 8.7, T-bilirubin 1.0, AST 20, ALT 27, albumin 4.2. Urine studies: UA showing negative protein, 1+ blood, 1 RBC for high power field. Renal ultrasound showing no overt hydronephrosis on my review of images. Echo from 2016 with report showing normal LV function. Mild tricuspid regurgitation. Mild pulmonary valvular regurgitation. ASSESSMENT AND PLAN: 1. Acute renal failure, oliguric renal failure of unclear etiology. No albuminuria on UA. No overt obstruction noted; patient does give history consistent with prerenal cause with GI losses and decreased p.o. intake; use of NSAIDs, may have contributed to acute kidney injury with loss of renal autoregulation. Awaiting further urine studies for total protein assessment. Agree with intravascular volume expansion with normal saline at 60 mL/hr. Otherwise, relatively stable volume and electrolyte status; no indication for renal replacement therapy at this time. 2. Dysuria. No evidence of urinary tract infection on urinalysis; the patient does have 1+ blood; we will obtain urine cytology. 3. Dyspnea. The patient with relatively normal echo from two years ago; however, with clear lungs. Recommend to repeat echo. Thank you for this referral. We will be following up closely. Tony Palmer MD
--- NOTE | 2017-11-30 11:09 | US ---
Date of service: 11/29/2017 PROCEDURE: Ultrasound of the Kidneys HISTORY: acute kidney injury COMPARISON: None available. TECHNIQUE: Sonogram of the kidneys. FINDINGS: RIGHT KIDNEY: Measures: 10.9 x 5.1 x 5.1 cm. Mildly increased echogenicity. Normal in size and contour. No stone, solid mass lesion or hydronephrosis visualized. LEFT KIDNEY: Measures: 12.2 x 5.6 x 4.4 cm. Mildly increased cortical echogenicity. Normal in size and contour. No stone, solid mass lesion or hydronephrosis visualized. OTHER FINDINGS: Prevoid urinary bladder 63.5 cc. No significant postvoid residual volume. IMPRESSION: Mildly echogenic kidneys may represent medical renal disease. No significant postvoid residual volume.
--- NOTE | 2017-11-30 11:45 | CT ---
Date of service: 11/30/2017 PROCEDURE: CT Abdomen and Pelvis without intravenous contrast HISTORY: Elevated Cr, r/o post obstruction COMPARISON: None. TECHNIQUE: Contiguous images were obtained from the domes of the diaphragms to the upper thighs without the administration of intravenous contrast. Oral contrast was not administered. Radiation dose: Total exam DLP = 738.2 mGy-cm. This CT exam was performed using one or more of the following dose reduction techniques: Automated exposure control, adjustment of the mA and/or kV according to patient size, and/or use of iterative reconstruction technique. FINDINGS: LOWER THORAX: Right middle and bilateral lower lobe atelectasis/scarring. Questionable ascending aortic ectasia/ aneurysm. LIVER: Unremarkable. No gross lesion or ductal dilatation. GALLBLADDER AND BILE DUCTS: Prior cholecystectomy with surgical clips in place. PANCREAS: Unremarkable. No gross lesion or ductal dilatation. SPLEEN: Unremarkable. ADRENALS: Unremarkable. No mass. KIDNEYS AND URETERS: Duplicated left renal collecting system. No hydronephrosis. No solid mass. VASCULATURE: Unremarkable. No aortic aneurysm. BOWEL: Colonic diverticulosis. No obstruction. No gross mural thickening. APPENDIX: Unremarkable. Normal appendix. PERITONEUM: Unremarkable. No free fluid. No free air. LYMPH NODES: Unremarkable. No enlarged lymph nodes. BLADDER: Decompressed around a Segura catheter. REPRODUCTIVE: Unremarkable. BONES: No acute fracture. OTHER FINDINGS: None. IMPRESSION: No obstructive uropathy or evidence of recently passed genitourinary calculus. Incidental note is made of a duplicated left renal collecting system. Additional findings as above.
[2017-11-30] MEDS: Sodium Chloride 0.9% 1,000 ML IV SCH ×2 (13:09→21:53)
[2017-11-30 13:34] LABS: SQUAMOUS EPITHIAL < 1 /hpf (0-5); URINE BACTERIA RARE (<OCC); URINE BILIRUBIN NEGATIVE (NEGATIVE); URINE BLOOD NEGATIVE (NEGATIVE); URINE CLARITY Clear (Clear); URINE COLOR Straw (YELLOW); URINE GLUCOSE (UA) NORMAL (Normal); URINE LEUKOCYTE ESTERASE 1+ Leu/uL (Negative); URINE PROTEIN 1+ mg/dL (NEGATIVE); URINE UROBILINOGEN NORMAL mg/dL (0.2-1.0)
--- NOTE | 2017-11-30 15:12 | CP.PCM.PN ---
Subjective - Date & Time of Evaluation Date of Evaluation: 11/30/17 Time of Evaluation: 13:00 - Subjective Subjective: PGY-2 nephrology progress note for Dr Palmer No acute events noted overnight. Patient complained of right flank pain which has been ongoing for 1 week. Stated she had fevers and chills on/off 1 week prior to presenting to ER. Last NSAID use was 3 days ago - takes 2 tablets ibuprofen per week. Exact history unclear. Today stated of suprapubic pain and dysuria however unclear if she meant discomfort from the wilkinson catheter. Overall reported feeling better, stated she was breathing better and cough has resolved. Denied diarrhea or n/v, denied fevers, chest pain. Objective - Vital Signs/Intake and Output Vital Signs (last 24 hours): Temp Pulse Resp BP Pulse Ox 98.1 F 74 20 117/71 100 11/30/17 07:25 11/30/17 07:25 11/30/17 07:25 11/30/17 07:25 11/30/17 07:25 Intake and Output: 11/30/17 11/30/17 06:59 18:59 Intake Total 660 1000 Output Total 1100 1000 Balance -440 0 - Medications Medications: Current Medications Albuterol/Ipratropium (Duoneb 3 Mg/0.5 Mg (3 Ml) Ud) 3 ml INH RQ6 [facility] Last Admin: 11/29/17 19:38 Dose: 3 ml Heparin Sodium (Porcine) (Heparin) 5,000 units SC Q8 [facility] Last Admin: 11/30/17 14:25 Dose: 5,000 units Sodium Chloride (Sodium Chloride 0.9%) 1,000 mls @ 60 mls/hr IV .[id number] [facility] Last Admin: 11/30/17 13:09 Dose: Not Given Metronidazole (Flagyl) 500 mg in 100 mls @ 100 mls/hr IVPB Q8H [facility] PRN Reason: Protocol Last Admin: 11/30/17 14:25 Dose: 100 mls/hr Pneumococcal Polyvalent Vaccine (Pneumovax 23 Vaccine) 0.5 ml IM .ONCE ONE Stop: 12/01/17 10:01 - Labs Labs: 11/30/17 06:37 11/30/17 06:37 - Constitutional Appears: Well, Non-toxic, No Acute Distress - Head Exam Head Exam: ATRAUMATIC, NORMAL INSPECTION - Eye Exam Eye Exam: EOMI Pupil Exam: PERRL - ENT Exam ENT Exam: Mucous Membranes Moist - Neck Exam Neck Exam: Full ROM, Normal Inspection. absent: Tenderness - Respiratory Exam Respiratory Exam: Clear to Ausculation Bilateral, NORMAL BREATHING PATTERN. absent: Rales, Rhonchi, Wheezes - Cardiovascular Exam Cardiovascular Exam: REGULAR RHYTHM, +S1, +S2. absent: Bradycardia, Tachycardia , JVD, Murmur - GI/Abdominal Exam GI & Abdominal Exam: Soft, Tenderness, Normal Bowel Sounds. absent: Distended, Firm, Guarding, Mass, Rebound - Exam Additional comments: w/ wilkinson outputting normal appearing urine - Back Exam Back Exam: CVA tenderness (R), tenderness - Neurological Exam Neurological Exam: Alert, Awake, Oriented x3 - Psychiatric Exam Psychiatric exam: Normal Affect, Normal Mood - Skin Skin Exam: Intact, Normal Color, Warm Assessment and Plan - Assessment and Plan (Free Text) Assessment: 72 year old female with a PMHx of asthma, osteoporosis and HLD presented to the ER with dyspnea found to be have acute renal failure: ACUTE RENAL FAILURE -1.1L urinary output via wilkinson today, continue with intravascular volume expansion with normal saline at 60ml/hr -As for imaging: Bladder/renal US showed mild echogenic kidneys which could indicate renal medical disease however there was no obstructive nephropathy seen and no postvoid residual volume. CT abd/pelvis w/o contrast did not show any obstruction, nor evidence for an infectious process, nor did it show any enlarged lymph nodes or masses indicating neoplasm -Total protein/creatinine ration indicates very little proteinuria -Urine sample was taken to the lab today and we were able to see many white blood cells as well as a few red blood cells under microscope - given these findings and otherwise normal urine markers, no obstruction, and low suspicion for UTI, we're strongly suspecting Acute Interstitial Nephritis thus we recommend patient to have a renal biopsy to help elucidate the etiology - this was discussed with the patient who is agreeable. Coags ordered, heparin to be held tonight and tomorrow morning and patient to be npo after midnight. DYSPNEA -F/U Echo -Echo from 2016 showed normal LV function, mild tricuspid regurgitation and mild pulmonary valvular regurgitation DYSURIA -First UA negative for leuk esterase and nitrates however repeat UA positive for leuk esterase and wbc's -F/U urine culture
[2017-11-30 20:39] LABS: INR 1.1; PROTHROMBIN TIME 12.1 SECONDS (9.7-12.2)
[2017-11-30 20:53] LABS: COMPLEMENT C4 50.1 mg/dL (14.0-44.0)
[2017-12-01] MEDS: Albuterol-Ipratrop 3 mg / 0.5 (3 ml) UD INH SCH ×4 (01:27→19:44)
[2017-12-01] MEDS: metroNIDAZOLE IV 500 mg/100 ml 500 MG/100 ML BAG IVPB SCH ×3 (06:11→21:29)
--- NOTE | 2017-12-01 06:16 | CP.PCM.PN ---
<ErichObed M - Last Filed: 12/01/17 15:32> Subjective - Date & Time of Evaluation Date of Evaluation: 12/01/17 Time of Evaluation: 07:40 - Subjective Subjective: PGY1 Resident note for Dr. Alves Patient seen and examined at bedside. Patient had no overnight events & no events picked up on telemtry. Patient was lying in bed receiving duneb therapy, no acute distress. Patient stated she still felt her some minor in her stomach that was radiating up to her midsternal region, but no further. Pt could not characterize the pain, but denies nausea and vomiting. Additionally patient stated her diarrhea was resolved. Patient still complained of lower abdominal pain. Patient had no other complaints. Patient denies head pain, eye pain/ change of vision, lower/upper extremity pain. Patient scheduled for renal biopsy today. AM heparin held, and patient NPO. Objective - Vital Signs/Intake and Output Vital Signs (last 24 hours): Temp Pulse Resp BP Pulse Ox 98.4 F 74 20 116/69 99 11/30/17 23:10 12/01/17 01:00 11/30/17 23:10 11/30/17 23:10 11/30/17 23:10 Intake and Output: 11/30/17 12/01/17 18:59 06:59 Intake Total 1000 1040 Output Total 1000 1150 Balance 0 -110 - Medications Medications: Current Medications Albuterol/Ipratropium (Duoneb 3 Mg/0.5 Mg (3 Ml) Ud) 3 ml INH RQ6 [facility] Last Admin: 12/01/17 01:27 Dose: 3 ml Heparin Sodium (Porcine) (Heparin) 5,000 units SC Q8 [facility] Last Admin: 11/30/17 14:25 Dose: 5,000 units Sodium Chloride (Sodium Chloride 0.9%) 1,000 mls @ 60 mls/hr IV .[id number] [facility] Last Admin: 11/30/17 21:53 Dose: 60 mls/hr Metronidazole (Flagyl) 500 mg in 100 mls @ 100 mls/hr IVPB Q8H [facility] PRN Reason: Protocol Last Admin: 12/01/17 06:11 Dose: 100 mls/hr Ceftriaxone Sodium (Rocephin Iv 1 Gm Duplex) 50 mls @ 100 mls/hr IVPB DAILY [facility] PRN Reason: Protocol Pneumococcal Polyvalent Vaccine (Pneumovax 23 Vaccine) 0.5 ml IM .ONCE ONE Stop: 12/01/17 10:01 - Labs Labs: 11/30/17 06:37 11/30/17 06:37 PT 12.1 SECONDS (9.7-12.2) 11/30/17 20:19 INR 1.1 11/30/17 20:19 APTT 32 SECONDS (21-34) 11/30/17 20:19 - Constitutional Appears: Non-toxic, No Acute Distress - Head Exam Head Exam: ATRAUMATIC, NORMAL INSPECTION - Eye Exam Eye Exam: EOMI, Normal appearance Pupil Exam: NORMAL ACCOMODATION - ENT Exam ENT Exam: Mucous Membranes Moist - Respiratory Exam Respiratory Exam: Clear to Ausculation Bilateral, NORMAL BREATHING PATTERN. absent: Rhonchi, Wheezes, Respiratory Distress - Cardiovascular Exam Cardiovascular Exam: +S1, +S2. absent: Diastolic murmur, Irregular Rhythm, JVD - GI/Abdominal Exam GI & Abdominal Exam: Guarding, Soft, Normal Bowel Sounds. absent: Distended, Firm Additional comments: Suprapubic pain on palpation - Extremities Exam Extremities Exam: Full ROM. absent: Calf Tenderness, Pedal Edema, Tenderness - Back Exam Back Exam: CVA tenderness (R) - Neurological Exam Neurological Exam: Alert, Awake, Oriented x3 - Psychiatric Exam Psychiatric exam: Normal Affect, Normal Mood - Skin Skin Exam: Dry, Intact, Normal Color, Warm Assessment and Plan - Assessment and Plan (Free Text) Assessment: 1) SHAHRAM: - BUN remains elevated 54 -> 56 -> 56 (12/01/17), Cr elevated 7.0 -> 7.2 -> 71 () - Pt had IR biopsy - w/ 3 samples taken, f/u results - 11/30 CT abd/ pelvs -> no obstruction - kidney/bladder U/S shows mildly echogenic kidney - Possibly due to dehydration - Wilkinson Cath in place, still producing good urine, ~3L - Per nephro recs, D/C NS @ 60 cc/hr - Clinical exam supports pyleonephrits, UA shows Leukocyte est 1+, WBCs 10, continue Ceftriaxone 1g Q24 IV - urine microalbumin 25.2, positive for eosinophiles, protein 16.0 - F/u culture 2) Shortness of Breath - Likely due to Bronchitis - Duonebs Q6 - CXR clear, will follow up - F/u Echo 3) Chest Pain - Less likley due to MN, possibly due to persistent cough, SOB, possibly GERD - EKG NSR - ROXANA neg X3 - CXR - negative - started 12/01 pepcid 20mg PO 4) Diarrhea -resolved - unclear etiology - Legionella AG negative - F/u C diff tox - Flagy 500 mg Q8 IV -continue 8 days, discontinue 12/06 5) Elevated LFTs - AST 20-> 66 -> 31, ALT 27 ->64 -> 64 - unclear etiology - trend LFTs 6) Prophylaxis - Heparin 5000U Q8 D/C, will continue 12/02 (had biopsy procedure today, 12/01) - SCDs <Tequila Alves V - Last Filed: 12/01/17 17:34> Objective - Vital Signs/Intake and Output Vital Signs (last 24 hours): Temp Pulse Resp BP Pulse Ox 97.4 F L 94 H 20 127/66 100 12/01/17 15:45 12/01/17 15:45 12/01/17 15:45 12/01/17 15:45 12/01/17 15:45 Intake and Output: 12/01/17 12/01/17 06:59 18:59 Intake Total 1040 440 Output Total 2050 250 Balance -1010 190 - Medications Medications: Current Medications Albuterol/Ipratropium (Duoneb 3 Mg/0.5 Mg (3 Ml) Ud) 3 ml INH RQ6 [facility] Last Admin: 12/01/17 13:27 Dose: 3 ml Famotidine (Pepcid) 20 mg PO DAILY [facility] Last Admin: 12/01/17 10:52 Dose: 20 mg Metronidazole (Flagyl) 500 mg in 100 mls @ 100 mls/hr IVPB Q8H [facility] PRN Reason: Protocol Last Admin: 12/01/17 14:22 Dose: 100 mls/hr Ceftriaxone Sodium (Rocephin Iv 1 Gm Duplex) 50 mls @ 100 mls/hr IVPB DAILY [facility] PRN Reason: Protocol Last Admin: 12/01/17 09:50 Dose: 100 mls/hr Lactobacillus Acidophilus (Bacid Acidophilus) 1 cap PO BID [facility] Last Admin: 12/01/17 14:22 Dose: 1 cap - Labs Labs: 12/01/17 08:34 12/01/17 08:34 PT 12.5 SECONDS (9.7-12.2) H 12/01/17 08:34 INR 1.1 12/01/17 08:34 APTT 29 SECONDS (21-34) 12/01/17 08:34 Attending/Attestation - Attestation I have personally seen and examined this patient.: Yes I have fully participated in the care of the patient.: Yes I have reviewed all pertinent clinical information, including history, physical exam and plan: Yes Notes (Text): Patient seen, examined and case discussed with medical billing supervisor. Patient seen this morning prior to renal biopsy scheduled for later today. Patient denies headache, denies epistaxis, reports dry cough, reports lower abdominal pain, reports loose formed stool movements, denies edema, and confirms that she has wilkinson. Assessment/Plan 1) Acute Renal Failure Possible Allergic Interstitial Nephritis Possible Urinary Tract Infection Assessment/Plan * Nephrology (Dr. Palmer) on case-->help appreciated * Monitor BUN/Cr * Patient undergoing 24 hour urine collection at this time. * Bladder US (11/30/17): mildly echogenic kidneys may represent medical renal disease. 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 3 18 guage core specimen obtained from lower pole. Biopsy tract embolized with gelfoam. 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 Will hold Heparin and reassess tomorrow in light of biopsy today.
[2017-12-01 08:44] LABS: BASO % 0.3 % (0.0-2.0); EOS # 0.1 K/uL (0.0-0.7); EOS % 1.4 % (0.0-4.0); HEMOGLOBIN 11.6 g/dL (11.0-16.0); LYMPH # 0.7 K/uL (1.0-4.3); LYMPH % 10.8 % (20.0-40.0); MEAN CORPUSCULAR HEMOGLOBIN 28.2 pg (27.0-31.0); MEAN CORPUSCULAR HGB CONC 33.6 g/dL (33.0-37.0); MEAN PLATELET VOLUME 8.3 fL (7.2-11.7); MONO # 0.4 K/uL (0.0-0.8); NEUT # 5.2 K/uL (1.8-7.0); NEUT % 80.5 % (50.0-75.0); RBC 4.11 Mil/uL (3.80-5.20); RED CELL DISTRIBUTION WIDTH 14.1 % (11.5-14.5); WHITE BLOOD COUNT 6.4 K/uL (4.8-10.8)
[2017-12-01 08:47] LABS: INR 1.1; PROTHROMBIN TIME 12.5 SECONDS (9.7-12.2)
[2017-12-01 08:54] LABS: ALB/GLOB RATIO 1.4 (1.0-2.1); ALBUMIN 3.8 g/dL (3.5-5.0); CALCIUM 8.4 mg/dl (8.6-10.4)
[2017-12-01] MEDS: cefTRIAXone IV 1 gm in Dextros 50 ML IVPB SCH (09:50)
[2017-12-01] MEDS ORDERED: Pneumococcal 23-Valent Vaccine IM ONE (10:00)
[2017-12-01] MEDS ORDERED: Absorbable Gelatin Sponge Size 12-7 ONE (11:30)
[2017-12-01] MEDS ORDERED: Midazolam 2 MG/2 ML VIAL ONE (11:50)
[2017-12-01] MEDS ORDERED: Etomidate 20 mg/10ml Inj IV ONE (11:52)
[2017-12-01] MEDS ORDERED: ePHEDrine 50 mg/ml Inj ONE (11:52)
--- NOTE | 2017-12-01 12:05 | PCM.SURG1 ---
Surgeon's Initial Post Op Note - Surgeon's Notes Surgeon: Jigar Xiong MD Can Technician: NONE Type of Anesthesia: IV Sedation Pre-Operative Diagnosis: Renal failure Operative Findings: US showed an unremarkable left kidney. Post-Operative Diagnosis: Renal failure Operation Performed: US guided left renal biopsy. Three 18 gauge core specimen obtained from lower pole. BIopsy tract embolized with gelfoam. Specimen/Specimens Removed: 18 gauge core x 3 Estimated Blood Loss: EBL {In ML}: 1 Blood Products Given: N/A Drains Used: No Drains Post-Op Condition: Fair Date of Surgery/Procedure: 12/01/17 Time of Surgery/Procedure: 12:00
--- NOTE | 2017-12-01 12:18 | CARD ---
APPROVED REPORT Date of service: 11/29/2017 EKG Measurement Heart [id number] <Conclusion> Normal sinus rhythm Normal ECG
[2017-12-01] MEDS: Lactobacillus Acidophilus 500 MU Cap PO SCH ×2 (14:22→18:00)
--- NOTE | 2017-12-01 14:46 | CP.PCM.PN ---
<Bronson Domingo - Last Filed: 12/01/17 14:43> Subjective - Date & Time of Evaluation Date of Evaluation: 12/01/17 Time of Evaluation: 12:45 - Subjective Subjective: PGY-2 nephrology progress note for Dr Palmer. No acute events noted overnight. Patient's daughter at bedside. Patient seen after having right renal biopsy done. Patient stated she felt a little sore at insertion site but otherwise doing well. Still complained of right flank pain. We advised she get bedrest until the evening. Denied cp, abd pain, dysuria, fevers. Wilkinson in place and 24 urine collection in progress with good amount of urine collected ~3L. Objective - Vital Signs/Intake and Output Vital Signs (last 24 hours): Temp Pulse Resp BP Pulse Ox 98.2 F 85 20 108/68 99 12/01/17 07:34 12/01/17 07:34 11/30/17 23:10 12/01/17 07:34 12/01/17 07:34 Intake and Output: 12/01/17 12/01/17 06:59 18:59 Intake Total 1040 Output Total 2050 250 Balance -1010 -250 - Medications Medications: Current Medications Albuterol/Ipratropium (Duoneb 3 Mg/0.5 Mg (3 Ml) Ud) 3 ml INH RQ6 [facility] Last Admin: 12/01/17 13:27 Dose: 3 ml Famotidine (Pepcid) 20 mg PO DAILY [facility] Last Admin: 12/01/17 10:52 Dose: 20 mg Heparin Sodium (Porcine) (Heparin) 5,000 units SC Q8 [facility] Last Admin: 11/30/17 14:25 Dose: 5,000 units Sodium Chloride (Sodium Chloride 0.9%) 1,000 mls @ 60 mls/hr IV .[id number] [facility] Last Admin: 11/30/17 21:53 Dose: 60 mls/hr Metronidazole (Flagyl) 500 mg in 100 mls @ 100 mls/hr IVPB Q8H [facility] PRN Reason: Protocol Last Admin: 12/01/17 14:22 Dose: 100 mls/hr Ceftriaxone Sodium (Rocephin Iv 1 Gm Duplex) 50 mls @ 100 mls/hr IVPB DAILY [facility] PRN Reason: Protocol Last Admin: 12/01/17 09:50 Dose: 100 mls/hr Lactobacillus Acidophilus (Bacid Acidophilus) 1 cap PO BID [facility] Last Admin: 12/01/17 14:22 Dose: 1 cap - Labs Labs: 12/01/17 08:34 12/01/17 08:34 PT 12.5 SECONDS (9.7-12.2) H 12/01/17 08:34 INR 1.1 12/01/17 08:34 APTT 29 SECONDS (21-34) 12/01/17 08:34 - Additional Findings Additional findings: - Constitutional Appears: Well, Non-toxic, No Acute Distress - Head Exam Head Exam: ATRAUMATIC, NORMAL INSPECTION - Eye Exam Eye Exam: EOMI Pupil Exam: PERRL - ENT Exam ENT Exam: Mucous Membranes Moist - Neck Exam Neck Exam: Full ROM, Normal Inspection. absent: Tenderness - Respiratory Exam Respiratory Exam: Clear to Ausculation Bilateral, NORMAL BREATHING PATTERN. absent: Rales, Rhonchi, Wheezes - Cardiovascular Exam Cardiovascular Exam: REGULAR RHYTHM, +S1, +S2. absent: Bradycardia, Tachycardia , JVD, Murmur - GI/Abdominal Exam GI & Abdominal Exam: Soft, Tenderness, Normal Bowel Sounds. absent: Distended, Firm, Guarding, Mass, Rebound - Exam Additional comments: w/ wilkinson outputting normal appearing urine - Back Exam Back Exam: CVA tenderness (R), tenderness - Neurological Exam Neurological Exam: Alert, Awake, Oriented x3 - Psychiatric Exam Psychiatric exam: Normal Affect, Normal Mood - Skin Skin Exam: Intact, Normal Color, Warm Assessment and Plan - Assessment and Plan (Free Text) Assessment: 72 year old female with a PMHx of asthma, osteoporosis and HLD presented to the ER with dyspnea found to be have acute renal failure: ACUTE RENAL FAILURE -24 hour urine collection in progress with good urine output -discontinued normal saline at 60ml/hr -As for imaging: Bladder/renal US showed mild echogenic kidneys which could indicate renal medical disease however there was no obstructive nephropathy seen and no postvoid residual volume. CT abd/pelvis w/o contrast did not show any obstruction, nor evidence for an infectious process, nor did it show any enlarged lymph nodes or masses indicating neoplasm -Total protein/creatinine ration indicates very little proteinuria -Urine sample was taken to the lab yesterday and we were able to see many white blood cells as well as a few red blood cells under microscope - given these findings and otherwise normal urine markers, no obstruction, and low suspicion for UTI, we're strongly suspecting Acute Interstitial Nephritis thus we recommend patient to have a renal biopsy to help elucidate the etiology (w/ 22mcg of desmopressin given to help correct for uremic platelet dysfunction) - patient is s/p right renal biopsy 12/01, biopsy results will probably not be available until Monday or Monday - we recommend keeping patient in house until then - this was relayed to patient and patient's daughter who are both understanding of circumstance DYSPNEA -F/U Echo -Echo from 2016 showed normal LV function, mild tricuspid regurgitation and mild pulmonary valvular regurgitation DYSURIA -First UA negative for leuk esterase and nitrates however repeat UA positive for leuk esterase and wbc's -urine culture 11/30 NEGATIVE <Tony Palmer - Last Filed: 12/02/17 07:12> Objective - Vital Signs/Intake and Output Vital Signs (last 24 hours): Temp Pulse Resp BP Pulse Ox 98.5 F 100 H 20 117/65 95 12/01/17 23:10 12/02/17 01:00 12/01/17 23:10 12/01/17 23:10 12/01/17 23:10 Intake and Output: 12/02/17 12/02/17 06:59 18:59 Output Total 1000 Balance -1000 - Medications Medications: Current Medications Albuterol/Ipratropium (Duoneb 3 Mg/0.5 Mg (3 Ml) Ud) 3 ml INH RQ6 [facility] Last Admin: 12/02/17 01:17 Dose: 3 ml Famotidine (Pepcid) 20 mg PO DAILY [facility] Last Admin: 12/01/17 10:52 Dose: 20 mg Metronidazole (Flagyl) 500 mg in 100 mls @ 100 mls/hr IVPB Q8H [facility] PRN Reason: Protocol Last Admin: 12/02/17 06:49 Dose: 100 mls/hr Ceftriaxone Sodium (Rocephin Iv 1 Gm Duplex) 50 mls @ 100 mls/hr IVPB DAILY [facility] PRN Reason: Protocol Last Admin: 12/01/17 09:50 Dose: 100 mls/hr Lactobacillus Acidophilus (Bacid Acidophilus) 1 cap PO BID [facility] Last Admin: 12/01/17 18:00 Dose: 1 cap - Labs Labs: 12/01/17 08:34 12/01/17 08:34 PT 12.5 SECONDS (9.7-12.2) H 12/01/17 08:34 INR 1.1 12/01/17 08:34 APTT 29 SECONDS (21-34) 12/01/17 08:34 Attending/Attestation - Attestation I have personally seen and examined this patient.: Yes I have fully participated in the care of the patient.: Yes I have reviewed all pertinent clinical information, including history, physical exam and plan: Yes Notes (Text): Patient seen and examined; I agree with the resident's note as above with the following additions/edits: 72 yo F w/ pmh only noted for asthma, admitted with dyspnea and acute renal faliure; s/p renal biopsy today due to suspicion for AIN with our direct urine microscopy yesterday showing ~40 WBC's/hpf without any bacteria; minimal proteinuria on random urine protein/creatinine ratio, obtaining 24 hr urine to conifrm; If AIN confirmed, cause is still a challenge but NSAID use is suspected despite patient's claim of only using them sporadically; will hold off on steroids until confirmed (no urgency to start now and 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
[2017-12-01 20:10] LABS: HEPATITIS B SURFACE AG Negative (NEGATIVE)
[2017-12-01 20:15] LABS: HEPATITIS A IGM NEGATIVE (NEGATIVE); HEPATITIS B CORE AB NEGATIVE (NEGATIVE)
[2017-12-01 20:27] LABS: HEPATITIS C ANTIBODY NEGATIVE (NEGATIVE)
[2017-12-02] MEDS: Albuterol-Ipratrop 3 mg / 0.5 (3 ml) UD INH SCH ×4 (01:17→19:40)
[2017-12-02] MEDS: metroNIDAZOLE IV 500 mg/100 ml 500 MG/100 ML BAG IVPB SCH (06:49)
[2017-12-02 07:18] LABS: BASO % 0.4 % (0.0-2.0); EOS # 0.1 K/uL (0.0-0.7); EOS % 1.3 % (0.0-4.0); HEMOGLOBIN 11.1 g/dL (11.0-16.0); LYMPH # 0.8 K/uL (1.0-4.3); LYMPH % 8.7 % (20.0-40.0); MEAN CELL VOLUME 83.2 fL (81.0-99.0); MEAN CORPUSCULAR HEMOGLOBIN 28.2 pg (27.0-31.0); MEAN CORPUSCULAR HGB CONC 33.9 g/dL (33.0-37.0); MEAN PLATELET VOLUME 8.2 fL (7.2-11.7); MONO # 0.6 K/uL (0.0-0.8); MONO % 6.9 % (0.0-10.0); NEUT # 7.4 K/uL (1.8-7.0); NEUT % 82.7 % (50.0-75.0); PLATELET COUNT 223 K/uL (130-400); RBC 3.94 Mil/uL (3.80-5.20); RED CELL DISTRIBUTION WIDTH 14.5 % (11.5-14.5); WHITE BLOOD COUNT 8.9 K/uL (4.8-10.8)
[2017-12-02 07:37] LABS: ALB/GLOB RATIO 1.4 (1.0-2.1); ALBUMIN 3.9 g/dL (3.5-5.0); CALCIUM 8.8 mg/dl (8.6-10.4)
--- NOTE | 2017-12-02 08:37 | CP.PCM.PN ---
<Oebd Jung M - Last Filed: 12/02/17 14:08> Subjective - Date & Time of Evaluation Date of Evaluation: 12/02/17 Time of Evaluation: 08:05 - Subjective Subjective: PGY1 Resident Note for Dr. Alves. Patient seen and examined at bedside. No acute events overnight. Patient sitting in bed, no acute distress. Patient states she still has some abdominal pain radiating to her chest, similar in nature since arrival, but no nausea & vomiting. Patient states pain overall improved. Patient states she has not had a bowel movement since Monday. Patient additionally has some back pain, closer to the biopsy site. Patient still has wilkinson in place and has a 24 hour urine collection time and volume of 3200. Objective - Vital Signs/Intake and Output Vital Signs (last 24 hours): Temp Pulse Resp BP Pulse Ox 98.1 F 93 H 20 136/74 94 L 12/02/17 07:00 12/02/17 07:00 12/02/17 07:00 12/02/17 07:00 12/02/17 07:00 Intake and Output: 12/02/17 12/02/17 06:59 18:59 Output Total 1000 Balance -1000 - Medications Medications: Current Medications Albuterol/Ipratropium (Duoneb 3 Mg/0.5 Mg (3 Ml) Ud) 3 ml INH RQ6 [facility] Last Admin: 12/02/17 07:31 Dose: 3 ml Docusate Sodium (Colace) 100 mg PO BID [facility] Famotidine (Pepcid) 20 mg PO DAILY [facility] Last Admin: 12/01/17 10:52 Dose: 20 mg Heparin Sodium (Porcine) (Heparin) 5,000 units SC Q12 [facility] Ceftriaxone Sodium (Rocephin Iv 1 Gm Duplex) 50 mls @ 100 mls/hr IVPB DAILY [facility] PRN Reason: Protocol Last Admin: 12/01/17 09:50 Dose: 100 mls/hr Lactobacillus Acidophilus (Bacid Acidophilus) 1 cap PO BID [facility] Last Admin: 12/01/17 18:00 Dose: 1 cap - Labs Labs: 12/02/17 07:11 12/02/17 07:11 PT 12.5 SECONDS (9.7-12.2) H 12/01/17 08:34 INR 1.1 12/01/17 08:34 APTT 29 SECONDS (21-34) 12/01/17 08:34 - Constitutional Appears: Well, Non-toxic, No Acute Distress - Head Exam Head Exam: ATRAUMATIC, NORMAL INSPECTION - Eye Exam Eye Exam: EOMI, Normal appearance - ENT Exam ENT Exam: Mucous Membranes Moist. absent: Mucous Membranes Dry - Respiratory Exam Respiratory Exam: Clear to Ausculation Bilateral, NORMAL BREATHING PATTERN. absent: Rales, Rhonchi, Wheezes - Cardiovascular Exam Cardiovascular Exam: +S1, +S2. absent: Irregular Rhythm, Murmur - GI/Abdominal Exam GI & Abdominal Exam: Soft, Normal Bowel Sounds. absent: Guarding Additional comments: patient still has some tenderness on palpation of b/l lower abdomen, but improved Patient still has some tenderness on palpation of the suprapubic region, but improved - Extremities Exam Extremities Exam: Full ROM, Normal Inspection - Back Exam Back Exam: CVA tenderness (R) Additional comments: Left lower back has dressing clean, dry, intact covering biopsy site - Neurological Exam Neurological Exam: Alert, Awake, Oriented x3. absent: Altered - Psychiatric Exam Psychiatric exam: Normal Affect, Normal Mood - Skin Skin Exam: Dry, Intact, Normal Color, Warm Assessment and Plan - Assessment and Plan (Free Text) Assessment: 72 yr old female w/ PMHx of Asthma & Osteoporosis present to ED with 3 weeks of SOB & 1 week of dry cough, found to have SHAHRAM on admission: 1) SHAHRAM: - BUN remains elevated 54 -> 56 -> 56 -> 54 (12/02/17), Cr elevated 7.0 -> 7.2 - > 71 - > 69 (12/01/17) - Pt had IR biopsy - w/ 3 samples taken 12/01/17, f/u results, vernon available - 11/30 CT abd/ pelvs -> no obstruction - kidney/bladder U/S shows mildly echogenic kidney - Possibly due to dehydration - Wilkinson Cath in place, still producing good urine, ~3L - Per nephro recs, D/C NS @ 60 cc/hr - Clinical exam supports pyleonephrits, UA shows Leukocyte est 1+, WBCs 10, continue Ceftriaxone 1g Q24 IV - urine microalbumin 25.2, positive for eosinophiles, protein 16.0 - culture neg X 24 hours 2) Shortness of Breath - Likely due to Bronchitis - Duonebs Q6 - CXR clear, will follow up - CT shows: Right middle and bilateral lower lobe atelectasis/scarring - continue to follow - F/u Echo 3) Chest Pain - Less likley due to [place], possibly due to persistent cough, SOB, possibly GERD - EKG NSR - ROXANA neg X3 - CXR - negative - started 12/01 pepcid 20mg PO 4) Constipation - pt reports last BM Monday, started colace 100 mg PO BID (12/02/17) 5) Diarrhea -resolved - unclear etiology - Legionella AG negative - F/u C diff tox - Flagy 500 mg Q8 IV - continue 8 days, D/C'ed 12/02/17 6) Elevated LFTs - AST 20-> 66 -> 31 -> 17, ALT 27 ->64 -> 64 -> 50 - unclear etiology - normal, but continue to trend - negative hepaitits A, B, & C 7) Prophylaxis - Dressing clean, dry, intact, no bleeding - Heparin 5000 SC resumed 12/02/17 - SCDs - F/u PT/OT eval <Tequila Alves V - Last Filed: 12/02/17 16:20> Objective - Vital Signs/Intake and Output Vital Signs (last 24 hours): Temp Pulse Resp BP Pulse Ox 98.1 F 93 H 20 136/74 94 L 12/02/17 07:00 12/02/17 07:00 12/02/17 07:00 12/02/17 07:00 12/02/17 07:00 Intake and Output: 12/02/17 12/02/17 06:59 18:59 Output Total 1000 Balance -1000 - Medications Medications: Current Medications Albuterol/Ipratropium (Duoneb 3 Mg/0.5 Mg (3 Ml) Ud) 3 ml INH RQ6 [facility] Last Admin: 12/02/17 07:31 Dose: 3 ml Docusate Sodium (Colace) 100 mg PO BID [facility] Last Admin: 12/02/17 09:43 Dose: 100 mg Famotidine (Pepcid) 20 mg PO DAILY [facility] Last Admin: 12/02/17 09:43 Dose: 20 mg Heparin Sodium (Porcine) (Heparin) 5,000 units SC Q12 [facility] Last Admin: 12/02/17 09:43 Dose: 5,000 units Ceftriaxone Sodium (Rocephin Iv 1 Gm Duplex) 50 mls @ 100 mls/hr IVPB DAILY [facility] PRN Reason: Protocol Last Admin: 12/02/17 09:43 Dose: 100 mls/hr Lactobacillus Acidophilus (Bacid Acidophilus) 1 cap PO BID [facility] Last Admin: 12/02/17 09:43 Dose: 1 cap - Labs Labs: 12/02/17 07:11 12/02/17 07:11 PT 12.5 SECONDS (9.7-12.2) H 12/01/17 08:34 INR 1.1 12/01/17 08:34 APTT 29 SECONDS (21-34) 12/01/17 08:34 Attending/Attestation - Attestation I have personally seen and examined this patient.: Yes I have fully participated in the care of the patient.: Yes I have reviewed all pertinent clinical information, including history, physical exam and plan: Yes Notes (Text): Patient seen, examined, and case discussed with day-time resident. Patient seen this morning with resident. Patient reports mild pain over the site of the renal biopsy. Patient had renal biopsy yesterday. Dressing clean/dry /intact. H/H stable. Will restart DVT ppx heparin for tonight. We will d/c Flagyl since patient no longer has diarrhea. She reports she has been constipated since Monday. Patient's urine culture no growth; discussed nephrology, patient had received IV abx prior to culture. Assessment/Plan 1) Acute Renal Failure Possible Allergic Interstitial Nephritis Possible Urinary Tract Infection Assessment/Plan * Nephrology (Dr. Palmer) on case-->help appreciated * Monitor BUN/Cr * Patient undergoing 24 hour urine collection at this time. * Bladder US (11/30/17): mildly echogenic kidneys may represent medical renal disease. 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 3 18 guage core specimen obtained from lower pole. Biopsy tract embolized with gelfoam. 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 3) Chest Pain-->resolved Assessment/Plan * EKG NSR * ROXANA neg X3 * CXR - negative * Start Pepcid 20mg PO daily for reflux symptoms * Pending echocardiogram-->pending 4) Diarrhea -resolved Constipation Assessment/Plan * Legionella AG negative * pending collection of stool * Order for stool ova, parasite, culture, and leukocytes * F/u C diff tox-->not collected on 11/29/17 * will d/c Flagyl 12/01/17 * Bacid 1 tab PO daily * Colace 100mg PO BID 5) Elevated LFTs Assessment/Plan * Monitor * CT abdomen/Pelvis (11/30/17): no obstructive uropathy or evidence of recently passed calculus, 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
[2017-12-02 09:22] LABS: ANISOCYTOSIS SLIGHT; BASOPHIL 1 % (0-2); EOSINOPHIL 2 % (0-4); LYMPHOCYTE 6 % (20-40); MONOCYTE 5 % (0-10); NEUTROPHIL 86 % (50-75); PLATELET ESTIMATE NORMAL (NORMAL); TOTAL CELLS COUNTED 100
[2017-12-02] MEDS: cefTRIAXone IV 1 gm in Dextros 50 ML IVPB SCH (09:43)
[2017-12-02] MEDS: Lactobacillus Acidophilus 500 MU Cap PO SCH ×2 (09:43→18:18)
--- NOTE | 2017-12-02 23:29 | CP.PCM.PN ---
Objective - Vital Signs/Intake and Output Vital Signs (last 24 hours): Temp Pulse Resp BP Pulse Ox 98.3 F 83 20 119/69 98 12/02/17 17:00 12/02/17 17:00 12/02/17 17:00 12/02/17 17:00 12/02/17 17:00 - Medications Medications: Current Medications Albuterol/Ipratropium (Duoneb 3 Mg/0.5 Mg (3 Ml) Ud) 3 ml INH RQ6 [facility] Last Admin: 12/02/17 19:40 Dose: 3 ml Docusate Sodium (Colace) 100 mg PO BID [facility] Last Admin: 12/02/17 18:18 Dose: 100 mg Famotidine (Pepcid) 20 mg PO DAILY [facility] Last Admin: 12/02/17 09:43 Dose: 20 mg Heparin Sodium (Porcine) (Heparin) 5,000 units SC Q12 [facility] Last Admin: 12/02/17 21:37 Dose: 5,000 units Ceftriaxone Sodium (Rocephin Iv 1 Gm Duplex) 50 mls @ 100 mls/hr IVPB DAILY [facility] PRN Reason: Protocol Last Admin: 12/02/17 09:43 Dose: 100 mls/hr Lactobacillus Acidophilus (Bacid Acidophilus) 1 cap PO BID [facility] Last Admin: 12/02/17 18:18 Dose: 1 cap - Labs Labs: 12/02/17 07:11 12/02/17 07:11 PT 12.5 SECONDS (9.7-12.2) H 12/01/17 08:34 INR 1.1 12/01/17 08:34 APTT 29 SECONDS (21-34) 12/01/17 08:34
[2017-12-03] MEDS: Albuterol-Ipratrop 3 mg / 0.5 (3 ml) UD INH SCH ×3 (01:19→13:17)
[2017-12-03 07:54] LABS: BASO % 0.5 % (0.0-2.0); EOS # 0.1 K/uL (0.0-0.7); EOS % 1.9 % (0.0-4.0); HEMOGLOBIN 11.6 g/dL (11.0-16.0); LYMPH # 0.8 K/uL (1.0-4.3); LYMPH % 10.5 % (20.0-40.0); MEAN CELL VOLUME 82.4 fL (81.0-99.0); MEAN CORPUSCULAR HEMOGLOBIN 28.3 pg (27.0-31.0); MEAN CORPUSCULAR HGB CONC 34.4 g/dL (33.0-37.0); MEAN PLATELET VOLUME 8.2 fL (7.2-11.7); MONO # 0.6 K/uL (0.0-0.8); MONO % 7.4 % (0.0-10.0); NEUT # 6.1 K/uL (1.8-7.0); NEUT % 79.7 % (50.0-75.0); RBC 4.1 Mil/uL (3.80-5.20); RED CELL DISTRIBUTION WIDTH 14.4 % (11.5-14.5); WHITE BLOOD COUNT 7.6 K/uL (4.8-10.8)
[2017-12-03 08:09] LABS: ALB/GLOB RATIO 1.5 (1.0-2.1); ALBUMIN 4.2 g/dL (3.5-5.0); CALCIUM 9.5 mg/dl (8.6-10.4)
--- NOTE | 2017-12-03 08:23 | CP.PCM.PN ---
<Bismark Panchal - Last Filed: 12/03/17 10:18> Subjective - Date & Time of Evaluation Date of Evaluation: 12/03/17 Time of Evaluation: 08:23 - Subjective Subjective: PGY-[address] Haq Patient is seen and examined at bedside. Patient describes no acute events overnight. Patient is in no acute distress, sleeping. Patient reports feeling much better. Patient says her SOB has improved, and her cough has resolved. Patient denies fevers, chills, shortness of breath, chest pain, headache, dizziness, nausea, vomiting, diarrhea, constipation or dysuria. Patient is [place] speaker. Objective - Vital Signs/Intake and Output Vital Signs (last 24 hours): Temp Pulse Resp BP Pulse Ox 97.9 F 83 20 126/71 97 12/02/17 23:10 12/02/17 23:10 12/02/17 23:10 12/02/17 23:10 12/02/17 23:10 - Medications Medications: Current Medications Albuterol/Ipratropium (Duoneb 3 Mg/0.5 Mg (3 Ml) Ud) 3 ml INH RQ6 [facility] Last Admin: 12/03/17 07:36 Dose: 3 ml Docusate Sodium (Colace) 100 mg PO BID [facility] Last Admin: 12/02/17 18:18 Dose: 100 mg Famotidine (Pepcid) 20 mg PO DAILY [facility] Last Admin: 12/02/17 09:43 Dose: 20 mg Heparin Sodium (Porcine) (Heparin) 5,000 units SC Q12 [facility] Last Admin: 12/02/17 21:37 Dose: 5,000 units Ceftriaxone Sodium (Rocephin Iv 1 Gm Duplex) 50 mls @ 100 mls/hr IVPB DAILY [facility] PRN Reason: Protocol Last Admin: 12/02/17 09:43 Dose: 100 mls/hr Lactobacillus Acidophilus (Bacid Acidophilus) 1 cap PO BID [facility] Last Admin: 12/02/17 18:18 Dose: 1 cap - Labs Labs: 12/03/17 07:48 12/03/17 07:48 PT 12.5 SECONDS (9.7-12.2) H 12/01/17 08:34 INR 1.1 12/01/17 08:34 APTT 29 SECONDS (21-34) 12/01/17 08:34 - Constitutional Appears: Well, Non-toxic, No Acute Distress - Head Exam Head Exam: ATRAUMATIC, NORMAL INSPECTION, NORMOCEPHALIC - Eye Exam Eye Exam: EOMI, Normal appearance, PERRL - Neck Exam Neck Exam: Full ROM, Normal Inspection - Respiratory Exam Respiratory Exam: Clear to Ausculation Bilateral, NORMAL BREATHING PATTERN. absent: Rales, Rhonchi, Wheezes - Cardiovascular Exam Cardiovascular Exam: REGULAR RHYTHM, +S1, +S2. absent: Gallop, Murmur - GI/Abdominal Exam GI & Abdominal Exam: Soft, Tenderness Additional comments: mild tenderness on Right upper quadrant and epigastric area - Extremities Exam Extremities Exam: Full ROM, Normal Inspection. absent: Joint Swelling, Pedal Edema, Tenderness - Back Exam Back Exam: Full ROM - Neurological Exam Neurological Exam: Alert, Awake, Oriented x3 - Psychiatric Exam Psychiatric exam: Normal Affect, Normal Mood - Skin Skin Exam: Dry, Intact, Normal Color Assessment and Plan - Assessment and Plan (Free Text) Plan: 1) SHAHRAM: - Clinical exam supports pyleonephrits - 11/30 CT abd/ pelvs -> no obstruction, no sign of kidney stones - 11/29 kidney/bladder U/S shows mildly echogenic kidney - BUN remains elevated 54 -> 56 -> 56 -> 54 -> 55 (12/03/17). Continue to monitor - Cr elevated 7.0 -> 7.2 -> 71 - > 69 -> 6.6 -> 6.1 (12/03/17). Continue to monitor - Pt had IR biopsy - w/ 3 samples taken 12/01/17. Report not available yet. F/U report on Monday 12/04 or Tuesday 12/05 - Segura Cath in place, 1250 - Per nephro recs, D/C NS @ 60 cc/hr - F/U Dr. Palmer Recs - sugesting Acute Interstitial Nephritis - UA shows Leukocyte est 1+, WBCs 10 - urine microalbumin 25.2, positive for eosinophiles, protein 16.0 - culture neg X 24 hours - continue Ceftriaxone 1g Q24 IV, day 3 2) Shortness of Breath - Likely due to Bronchitis - Duonebs 3ml INH Q6 - 11/29 CXR clear, will follow up - 11/30 CT shows: Right middle and bilateral lower lobe atelectasis/scarring - continue to follow - 2015 echo: normal LV function, mild tricuspid regurg, mild pulmonary valvular regurgitation - F/u Echo 3) Chest Pain - no chest pain, mild abdominal pain upon palpation epigastric and left upper quadrant - Less Likely due to [place], possibly due to persistent cough, SOB, possibly GERD - EKG NSR - ROXANA neg X3 - CXR - negative - started 12/01 pepcid 20mg PO 4) Constipation, resolved - normal bowel movement yesterday. - Cont colace 100 mg PO BID (12/02/17) -keep monitoring 5) Diarrhea -resolved - Flagy 500 mg Q8 IV D/C'ed 12/02/17 - Legionella AG negative - F/u C diff tox 6) Elevated LFTs, resolved - most elevated levels 11/30 AST 66 ALT 64 - 12/03: ALT 20, AST 39 - unclear etiology - normal, but continue to trend - negative hepaitits A, B, & C - Keep monitoring 7) Prophylaxis - Dressing clean, dry, intact, no bleeding -Heparin 5000 SC resumed 12/02/17 - SCDs - F/u PT/OT misty Panchal, PGY-1 <Sandrine Haq - Last Filed: 12/03/17 17:17> Objective - Vital Signs/Intake and Output Vital Signs (last 24 hours): Temp Pulse Resp BP Pulse Ox 98.7 F 77 20 122/77 96 12/03/17 15:06 12/03/17 15:06 12/03/17 15:06 12/03/17 15:06 12/03/17 15:06 - Medications Medications: Current Medications Albuterol/Ipratropium (Duoneb 3 Mg/0.5 Mg (3 Ml) Ud) 3 ml INH RQ6 [facility] Last Admin: 12/03/17 13:17 Dose: 3 ml Docusate Sodium (Colace) 100 mg PO BID [facility] Last Admin: 12/03/17 09:40 Dose: 100 mg Famotidine (Pepcid) 20 mg PO DAILY [facility] Last Admin: 12/03/17 09:40 Dose: 20 mg Heparin Sodium (Porcine) (Heparin) 5,000 units SC Q12 [facility] Last Admin: 12/03/17 09:40 Dose: 5,000 units Ceftriaxone Sodium (Rocephin Iv 1 Gm Duplex) 50 mls @ 100 mls/hr IVPB DAILY [facility] PRN Reason: Protocol Last Admin: 12/03/17 09:41 Dose: 100 mls/hr Lactobacillus Acidophilus (Bacid Acidophilus) 1 cap PO BID [facility] Last Admin: 12/03/17 09:40 Dose: 1 cap - Labs Labs: 12/03/17 07:48 12/03/17 07:48 PT 12.5 SECONDS (9.7-12.2) H 12/01/17 08:34 INR 1.1 12/01/17 08:34 APTT 29 SECONDS (21-34) 12/01/17 08:34 Attending/Attestation - Attestation I have personally seen and examined this patient.: Yes I have fully participated in the care of the patient.: Yes I have reviewed all pertinent clinical information, including history, physical exam and plan: Yes Notes (Text): Seen and examined,lying comfortable,mild lower abdominal pain,no fever,no nausea ,no vomiting on examination she has clear lungs and benign abdomen 1.Acute renal failure likey Acute interstitial nephritis s/p Renal biopsy d/w DR Palmer. we will follow her biopsy her creatinine is coming down continue rocephine for her brochitis urine culture no growth I agree with the documentation of the assessment and the plan
[2017-12-03] MEDS: Lactobacillus Acidophilus 500 MU Cap PO SCH ×2 (09:40→17:36)
[2017-12-03] MEDS: cefTRIAXone IV 1 gm in Dextros 50 ML IVPB SCH (09:41)
--- NOTE | 2017-12-03 16:02 | CARD ---
APPROVED REPORT Date of service: 11/30/2017 EXAM: Two-dimensional and M-mode echocardiogram with Doppler and color Doppler. Other Information Quality : GoodRhythm : INDICATION Dyspnea Chest Pain M-Mode DIMENSIONS RVDd1.60 (2.1-3.2cm)Left Atrium (MM)2.88 (2.5-4.0cm) IVSd0.56 (0.7-1.1cm)Aortic Root3.19 (2.2-3.7cm) LVDd5.59 (4.0-5.6cm)Aortic Cusp Exc.1.80 (1.5-2.0cm) PWd0.80 (0.7-1.1cm)FS (%) 32 % LVDs3.78 (2.0-3.8cm)LVEF (%)60 (>50%) Mitral Valve MV E Ctuoocry94.6cm/sMV A Ubfluppl39.4cm/sE/A ratio0.7 TDI E/Lateral E'0.0E/Medial E'0.0 Tricuspid Valve TR Peak [id number]/sTR Peak Gr.[id number] <Conclusion> normal size la,lv & ra rv. normal lv wall thickness,motion & systolic funciton with lvef of 60-65%. lv diastolic dysfunction grade one. slcerotic aortic leaflets with mild ai. normal mitral,tv & pv. mild tr with normal pulmonary systolic pressures of 30 mm of hg. no pericardial effusion. normal size ivc & aortic root.
[2017-12-03] MEDS ORDERED: Albuterol-Ipratrop 3 mg / 0.5 (3 ml) UD INH PRN (17:18)
--- NOTE | 2017-12-03 19:28 | CP.PCM.PN ---
Subjective - Date & Time of Evaluation Date of Evaluation: 12/03/17 Time of Evaluation: 12:00 - Subjective Subjective: Patient reporting some sob, overall improved; tolerating diet; urinating well after wilkinson removed yesterday; Objective - Vital Signs/Intake and Output Vital Signs (last 24 hours): Temp Pulse Resp BP Pulse Ox 98.7 F 77 20 122/77 96 12/03/17 15:06 12/03/17 15:06 12/03/17 15:06 12/03/17 15:06 12/03/17 15:06 - Medications Medications: Current Medications Albuterol/Ipratropium (Duoneb 3 Mg/0.5 Mg (3 Ml) Ud) 3 ml INH RQ6 [facility] PRN Reason: Shortness of Breath Docusate Sodium (Colace) 100 mg PO BID [facility] Last Admin: 12/03/17 17:36 Dose: 100 mg Famotidine (Pepcid) 20 mg PO DAILY [facility] Last Admin: 12/03/17 09:40 Dose: 20 mg Heparin Sodium (Porcine) (Heparin) 5,000 units SC Q12 [facility] Last Admin: 12/03/17 09:40 Dose: 5,000 units Ceftriaxone Sodium (Rocephin Iv 1 Gm Duplex) 50 mls @ 100 mls/hr IVPB DAILY [facility] PRN Reason: Protocol Last Admin: 12/03/17 09:41 Dose: 100 mls/hr Lactobacillus Acidophilus (Bacid Acidophilus) 1 cap PO BID [facility] Last Admin: 12/03/17 17:36 Dose: 1 cap - Labs Labs: 12/03/17 07:48 12/03/17 07:48 PT 12.5 SECONDS (9.7-12.2) H 12/01/17 08:34 INR 1.1 12/01/17 08:34 APTT 29 SECONDS (21-34) 12/01/17 08:34 - Constitutional Appears: Non-toxic, No Acute Distress - Respiratory Exam Respiratory Exam: Clear to Ausculation Bilateral. absent: Respiratory Distress - Cardiovascular Exam Cardiovascular Exam: RRR, +S1, +S2 - GI/Abdominal Exam GI & Abdominal Exam: absent: Distended, Soft - Extremities Exam Additional comments: no leg edema; - Neurological Exam Neurological Exam: Alert, Awake - Psychiatric Exam Psychiatric exam: Normal Mood. absent: Agitated - Skin Skin Exam: Warm. absent: Cyanosis Assessment and Plan (1) Acute renal failure Assessment & Plan: Non-oliguric renal failure, improving; stable volume and electrolyte status; no indication for HD; suspected AIN, possibly from NSAID use; s/p renal biopsy on Monday, awaiting results (likely tomorrow afternoon); should be fine for d/c home subsequently with close f/u in renal clinic; -avoid nephrotoxic agents (NSAIDS, phosphate enema, etc); Status: Acute (2) Pyuria Assessment & Plan: With negative urine culture (although taken after dose of abx given); currently on ceftriaxone due to UTI symptoms, no renal dose adjustment needed; Status: Acute
[2017-12-04 01:58] LABS: BASO % 0.3 % (0.0-2.0); EOS # 0.2 K/uL (0.0-0.7); EOS % 1.7 % (0.0-4.0); LYMPH # 1.2 K/uL (1.0-4.3); LYMPH % 12.6 % (20.0-40.0); MEAN CELL VOLUME 82.2 fL (81.0-99.0); MEAN CORPUSCULAR HEMOGLOBIN 27.7 pg (27.0-31.0); MEAN CORPUSCULAR HGB CONC 33.6 g/dL (33.0-37.0); MEAN PLATELET VOLUME 8.2 fL (7.2-11.7); MONO # 0.7 K/uL (0.0-0.8); MONO % 7.7 % (0.0-10.0); NEUT # 7.1 K/uL (1.8-7.0); NEUT % 77.7 % (50.0-75.0); RBC 4.35 Mil/uL (3.80-5.20); RED CELL DISTRIBUTION WIDTH 14.4 % (11.5-14.5); WHITE BLOOD COUNT 9.2 K/uL (4.8-10.8)
[2017-12-04 02:12] LABS: ALB/GLOB RATIO 1.5 (1.0-2.1); ALBUMIN 4.4 g/dL (3.5-5.0); CALCIUM 9.4 mg/dl (8.6-10.4)
[2017-12-04 02:23] LABS: CK-MB 0.48 ng/mL (0.0-3.38)
--- NOTE | 2017-12-04 10:31 | CP.PCM.PN ---
<Jaxson Armstrong - Last Filed: 12/04/17 15:55> Subjective - Date & Time of Evaluation Date of Evaluation: 12/04/17 Time of Evaluation: 10:00 - Subjective Subjective: Jaxson Armstrong PGY-1 [facility] Progress Note Patient seen and examined at bedside. Patient states she is having mild pain at site of biopsy and has been having headaches. As per nursing she received Tylenol at 2am today. Patient states she has been having SOB associated with chest pain on exertion and at rest. Patient reports healthy appetite and tolerating diet. Patient states she has been urinating without urinary complaints. Patient denies nausea, vomiting, constipation or diarrhea. Objective - Vital Signs/Intake and Output Vital Signs (last 24 hours): Temp Pulse Resp BP Pulse Ox 98.0 F 77 18 126/74 98 12/04/17 07:20 12/04/17 07:20 12/04/17 07:20 12/04/17 07:20 12/04/17 07:20 - Medications Medications: Current Medications Albuterol/Ipratropium (Duoneb 3 Mg/0.5 Mg (3 Ml) Ud) 3 ml INH RQ6 PRN PRN Reason: Shortness of Breath Docusate Sodium (Colace) 100 mg PO BID [facility] Last Admin: 12/03/17 17:36 Dose: 100 mg Famotidine (Pepcid) 20 mg PO DAILY [facility] Last Admin: 12/03/17 09:40 Dose: 20 mg Heparin Sodium (Porcine) (Heparin) 5,000 units SC Q12 [facility] Last Admin: 12/03/17 21:31 Dose: 5,000 units Ceftriaxone Sodium (Rocephin Iv 1 Gm Duplex) 50 mls @ 100 mls/hr IVPB DAILY [facility] PRN Reason: Protocol Last Admin: 12/03/17 09:41 Dose: 100 mls/hr Lactobacillus Acidophilus (Bacid Acidophilus) 1 cap PO BID [facility] Last Admin: 12/03/17 17:36 Dose: 1 cap - Labs Labs: 12/04/17 01:55 12/04/17 01:55 PT 12.5 SECONDS (9.7-12.2) H 12/01/17 08:34 INR 1.1 12/01/17 08:34 APTT 29 SECONDS (21-34) 12/01/17 08:34 - Additional Findings Additional findings: - Constitutional Appears: Non-toxic, No Acute Distress - Respiratory Exam Respiratory Exam: Clear to Ausculation Bilateral. absent: Respiratory Distress - Cardiovascular Exam Cardiovascular Exam: RRR, +S1, +S2 - GI/Abdominal Exam GI & Abdominal Exam: absent: Distended, Soft - Extremities Exam Additional comments: no leg edema; - Neurological Exam Neurological Exam: Alert, Awake - Psychiatric Exam Psychiatric exam: Normal Mood. absent: Agitated - Skin Skin Exam: Warm. absent: Cyanosis Assessment and Plan - Assessment and Plan (Free Text) Assessment: Patient is a 72 yo female with PMH of asthma and osteporosis presenting with shortness of breath (at rest and exertion) and cough. Plan: (1) Acute renal failure Assessment & Plan: -Non-oliguric renal failure -Improving BUN and Cr -Stable volume and electrolyte status -No indication for HD -Supected AIN, possibly from NSAID use; s/p renal biopsy on Monday, Awaiting results (likely today afternoon) -Should be fine for d/c home subsequently with close f/u in renal clinic; -avoid nephrotoxic agents (NSAIDS, phosphate enema, etc); Status: Acute (2) Pyuria Assessment & Plan: -With negative urine culture (although taken after dose of abx given); -Currently on ceftriaxone due to U/A, no renal dose adjustment needed; Status: Acute <Tony Palmer - Last Filed: 12/05/17 06:50> Objective - Vital Signs/Intake and Output Vital Signs (last 24 hours): Temp Pulse Resp BP Pulse Ox 98.2 F 82 20 127/75 96 12/04/17 23:05 12/04/17 23:05 12/04/17 23:05 12/04/17 23:05 12/04/17 23:05 Intake and Output: 12/04/17 12/05/17 18:59 06:59 Intake Total 800 Balance 800 - Medications Medications: Current Medications Albuterol/Ipratropium (Duoneb 3 Mg/0.5 Mg (3 Ml) Ud) 3 ml INH RQ6 PRN PRN Reason: Shortness of Breath Docusate Sodium (Colace) 100 mg PO BID [facility] Last Admin: 12/04/17 18:00 Dose: 100 mg Famotidine (Pepcid) 20 mg PO DAILY [facility] Last Admin: 12/04/17 11:00 Dose: 20 mg Heparin Sodium (Porcine) (Heparin) 5,000 units SC Q12 [facility] Last Admin: 12/04/17 21:41 Dose: 5,000 units Ceftriaxone Sodium (Rocephin Iv 1 Gm Duplex) 50 mls @ 100 mls/hr IVPB DAILY [facility] PRN Reason: Protocol Last Admin: 12/04/17 10:55 Dose: 100 mls/hr Lactobacillus Acidophilus (Bacid Acidophilus) 1 cap PO BID [facility] Last Admin: 12/04/17 18:00 Dose: 1 cap - Labs Labs: 12/04/17 01:55 12/04/17 01:55 PT 12.5 SECONDS (9.7-12.2) H 12/01/17 08:34 INR 1.1 12/01/17 08:34 APTT 29 SECONDS (21-34) 12/01/17 08:34 Assessment and Plan (1) Acute renal failure Status: Acute (2) Pyuria Status: Acute Attending/Attestation - Attestation I have personally seen and examined this patient.: Yes I have fully participated in the care of the patient.: Yes I have reviewed all pertinent clinical information, including history, physical exam and plan: Yes Notes (Text): Patient seen and examined; I agree with the resident's note as above with the following additions/edits: Patient with asthma history, presented with sob, admitted with acute renal failure; s/p renal biopsy on Monday; preliminary results discussed with pathologist; showing mild tubular injury (ATN) and some patchy areas of interstitial inflammation; AIN suspected, likely from NSAID use; Renal function has improved slightly; stable volume and electrolyte status with very mild metabolic acidosis; since there is only mild inflammation on kidney biopsy, will hold off on starting steroids; recommend to have close outpatient f /u in our renal clinic with bmp in a few days; needs to avoid all NSAIDS;
[2017-12-04] MEDS: cefTRIAXone IV 1 gm in Dextros 50 ML IVPB SCH (10:55)
[2017-12-04] MEDS: Lactobacillus Acidophilus 500 MU Cap PO SCH ×2 (11:01→18:00)
--- NOTE | 2017-12-04 11:22 | CP.PCM.PN ---
Subjective - Date & Time of Evaluation Date of Evaluation: 12/04/17 Time of Evaluation: 11:22 - Subjective Subjective: PGY-[address] Haq service Patient is seen and examined at bedside. Patient complains of pain in her right upper back that started last night. Patient said tylenol helped with the pain, but continues to have some pain. Patient feels pain when inhaling. patient states she has a burning pain in her chest. Patient sys she continues to have mild SOB. Patient denies fever, chills, headaches, dizziness, abdominal pain, nausea, vomiting, diarrhea, constipation or pain at urination. Objective - Vital Signs/Intake and Output Vital Signs (last 24 hours): Temp Pulse Resp BP Pulse Ox 98.0 F 77 18 126/74 98 12/04/17 07:20 12/04/17 07:20 12/04/17 07:20 12/04/17 07:20 12/04/17 07:20 - Medications Medications: Current Medications Albuterol/Ipratropium (Duoneb 3 Mg/0.5 Mg (3 Ml) Ud) 3 ml INH RQ6 PRN PRN Reason: Shortness of Breath Docusate Sodium (Colace) 100 mg PO BID [facility] Last Admin: 12/04/17 11:00 Dose: 100 mg Famotidine (Pepcid) 20 mg PO DAILY [facility] Last Admin: 12/04/17 11:00 Dose: 20 mg Heparin Sodium (Porcine) (Heparin) 5,000 units SC Q12 [facility] Last Admin: 12/04/17 11:01 Dose: 5,000 units Ceftriaxone Sodium (Rocephin Iv 1 Gm Duplex) 50 mls @ 100 mls/hr IVPB DAILY [facility] PRN Reason: Protocol Last Admin: 12/04/17 10:55 Dose: 100 mls/hr Lactobacillus Acidophilus (Bacid Acidophilus) 1 cap PO BID [facility] Last Admin: 12/04/17 11:01 Dose: 1 cap - Labs Labs: 12/04/17 01:55 12/04/17 01:55 PT 12.5 SECONDS (9.7-12.2) H 12/01/17 08:34 INR 1.1 12/01/17 08:34 APTT 29 SECONDS (21-34) 12/01/17 08:34 - Constitutional Appears: Non-toxic, No Acute Distress - Head Exam Head Exam: ATRAUMATIC, NORMAL INSPECTION, NORMOCEPHALIC - Eye Exam Eye Exam: EOMI, Normal appearance, PERRL - ENT Exam ENT Exam: Mucous Membranes Moist, Normal Exam - Neck Exam Neck Exam: Full ROM, Normal Inspection - Respiratory Exam Respiratory Exam: Clear to Ausculation Bilateral, NORMAL BREATHING PATTERN. absent: Rales, Rhonchi, Wheezes - Cardiovascular Exam Cardiovascular Exam: REGULAR RHYTHM, +S1, +S2 - GI/Abdominal Exam GI & Abdominal Exam: Soft, Normal Bowel Sounds. absent: Firm, Guarding, Rigid, Tenderness - Extremities Exam Extremities Exam: Full ROM, Normal Inspection - Neurological Exam Neurological Exam: Alert, Awake, CN II-XII Intact - Psychiatric Exam Psychiatric exam: Normal Affect, Normal Mood - Skin Skin Exam: Dry, Intact, Normal Color Assessment and Plan - Assessment and Plan (Free Text) Plan: SHAHRAM * 11/29 Kidney bladder pelvis US: mildly echogenic kidney * 11/30 CT abd/pelvis: no obstruction, no signs of kidney stones * UA 11/30: Leukocyte est 1+, WBC 10 * 11/30 Urine culture ([facility]): no growth * 12/01 Renal biopsy done, 3 samples taken. Continue to Follow up final report * BUN 12/03: 55 --> 12/04: 63 * Creatinine 12/03: 6.1 --> 12/04: 6.1 * Nephro consult Dr Palmer --> suspected AIN, possibly from NSAID use, no indication for HD, Improving BUN Cr, stable volume and electrolyte status. waiting renal biopsy results --> F/U for tomorrow. will be considered for discharge if renal biopsy results are negative and patient remains stable. * Continue Rocephin IV 1gm IVPB Qdaily, currently on day 4 Shortness of breath * continues to feel SOB when breathing in, with assoc right back pain * possible bronchitis * 11/29 CXR: no active disease * 11/30 CT: Rt middle and bilateral lower lobe atelectasis/scarring * echo 2015: normal LV function, mild tricuspid regurg, mild pulmonary valvular regurgitation * 11/30/2017: EF 60-65%, sclerotic aortic leaflets with mild ai, no pericardial effusion, normal wall thickness * continue rocephin IV 1gm IVPB Q daily Chest pain * mild chest pain associated with SOB * 12/04/17 EKG: Normal sinus rhythm with 1st degree AV block * 11/29/17 EKG: normal findings * ROXANA on admission negative x3 * ROXANA x1 on 12/04: negative * CXR negative Prophylaxis * Dressing clean, dry, intact, no bleeding * Heparin 5000 SC resumed 12/02/17 * SCDs * 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 Plan was discussed with Dr. Eun Panchal, PGY-1
--- NOTE | 2017-12-05 06:51 | CP.PCM.PN ---
Objective - Vital Signs/Intake and Output Vital Signs (last 24 hours): Temp Pulse Resp BP Pulse Ox 98.2 F 82 20 127/75 96 12/04/17 23:05 12/04/17 23:05 12/04/17 23:05 12/04/17 23:05 12/04/17 23:05 Intake and Output: 12/04/17 12/05/17 18:59 06:59 Intake Total 800 Balance 800 - Medications Medications: Current Medications Albuterol/Ipratropium (Duoneb 3 Mg/0.5 Mg (3 Ml) Ud) 3 ml INH RQ6 PRN PRN Reason: Shortness of Breath Docusate Sodium (Colace) 100 mg PO BID [facility] Last Admin: 12/04/17 18:00 Dose: 100 mg Famotidine (Pepcid) 20 mg PO DAILY [facility] Last Admin: 12/04/17 11:00 Dose: 20 mg Heparin Sodium (Porcine) (Heparin) 5,000 units SC Q12 [facility] Last Admin: 12/04/17 21:41 Dose: 5,000 units Ceftriaxone Sodium (Rocephin Iv 1 Gm Duplex) 50 mls @ 100 mls/hr IVPB DAILY [facility] PRN Reason: Protocol Last Admin: 12/04/17 10:55 Dose: 100 mls/hr Lactobacillus Acidophilus (Bacid Acidophilus) 1 cap PO BID [facility] Last Admin: 12/04/17 18:00 Dose: 1 cap - Labs Labs: 12/04/17 01:55 12/04/17 01:55 PT 12.5 SECONDS (9.7-12.2) H 12/01/17 08:34 INR 1.1 12/01/17 08:34 APTT 29 SECONDS (21-34) 12/01/17 08:34
[2017-12-05 08:30] VITALS: BP 123/72; PULSE 77; RESP 18; TEMP 98.5; O2SAT 95
[2017-12-05 08:39] LABS: BASO % 0.4 % (0.0-2.0); EOS # 0.2 K/uL (0.0-0.7); EOS % 2.5 % (0.0-4.0); HEMOGLOBIN 12.4 g/dL (11.0-16.0); LYMPH # 0.9 K/uL (1.0-4.3); LYMPH % 13.4 % (20.0-40.0); MEAN CELL VOLUME 83.4 fL (81.0-99.0); MEAN CORPUSCULAR HGB CONC 33.6 g/dL (33.0-37.0); MEAN PLATELET VOLUME 8.6 fL (7.2-11.7); MONO # 0.5 K/uL (0.0-0.8); MONO % 7.7 % (0.0-10.0); NEUT # 5.1 K/uL (1.8-7.0); RBC 4.41 Mil/uL (3.80-5.20); RED CELL DISTRIBUTION WIDTH 14.1 % (11.5-14.5); WHITE BLOOD COUNT 6.7 K/uL (4.8-10.8)
[2017-12-05 09:01] LABS: ALB/GLOB RATIO 1.3 (1.0-2.1); ALBUMIN 4.3 g/dL (3.5-5.0); CALCIUM 9.8 mg/dl (8.6-10.4)
--- NOTE | 2017-12-05 09:58 | US ---
PROCEDURE: Date of procedure: 12/04/2017 Procedure: Ultrasound-guided left renal biopsy, CPT 08754 Ultrasound guidance for biopsy, [address] Medication: 8 cc 2% Lidocaine, patient received IV sedation by the anesthesiologist along with physiologic monitoring. HISTORY: Renal failure TECHNIQUE: Following informed consent and procedure time-out, the patient was placed prone on the interventional table and a limited ultrasound showed slightly echogenic left kidney consistent with medical renal disease. There is no hydronephrosis or mass. The patient left back was prepped and draped in the usual sterile fashion. After patient sedated by the anesthesiologist and the skin anesthetized with lidocaine, an 18 gauge core needle was advanced percutaneously towards the lower pole cortex. Upon confirmation of needle position, three-18 gauge core specimens were obtained and sent for routine pathology. The biopsy tract was then embolized with Gelfoam. A post biopsy ultrasound showed no hematoma. There were no immediate complications. IMPRESSION: Ultrasound-guided left renal biopsy.
[2017-12-05] MEDS: Lactobacillus Acidophilus 500 MU Cap PO SCH (10:21)
[2017-12-05] MEDS: cefTRIAXone IV 1 gm in Dextros 50 ML IVPB SCH (10:21)
--- NOTE | 2017-12-05 11:31 | CP.PCM.PN ---
Subjective - Date & Time of Evaluation Date of Evaluation: 12/05/17 Time of Evaluation: 10:30 - Subjective Subjective: Jaxson Armstrong PGY-1 [facility] Progress Note Patient seen and examined at bedside. Patient reports shortness of breath on exertion and rest however more profound with exertion and associated dizziness. Patient reports no chest pain but admits to right flank pain which wraps to the front LLQ of abdomen. Patient reports good appetite. Patient states she urinated once yesterday with no dysuria or burning and had one bowel movement. Patient denies hematuria, fever, and chills. Patient denies N/V/C/D. Objective - Vital Signs/Intake and Output Vital Signs (last 24 hours): Temp Pulse Resp BP Pulse Ox 98.5 F 77 18 123/72 95 12/05/17 07:30 12/05/17 07:30 12/05/17 07:30 12/05/17 07:30 12/05/17 07:30 Intake and Output: 12/05/17 12/05/17 06:59 18:59 Intake Total 800 Balance 800 - Medications Medications: Current Medications Albuterol/Ipratropium (Duoneb 3 Mg/0.5 Mg (3 Ml) Ud) 3 ml INH RQ6 PRN PRN Reason: Shortness of Breath Docusate Sodium (Colace) 100 mg PO BID [facility] Last Admin: 12/05/17 10:21 Dose: 100 mg Famotidine (Pepcid) 20 mg PO DAILY [facility] Last Admin: 12/05/17 10:21 Dose: 20 mg Heparin Sodium (Porcine) (Heparin) 5,000 units SC Q12 [facility] Last Admin: 12/05/17 10:20 Dose: 5,000 units Ceftriaxone Sodium (Rocephin Iv 1 Gm Duplex) 50 mls @ 100 mls/hr IVPB DAILY [facility] PRN Reason: Protocol Last Admin: 12/05/17 10:21 Dose: 100 mls/hr Lactobacillus Acidophilus (Bacid Acidophilus) 1 cap PO BID [facility] Last Admin: 12/05/17 10:21 Dose: 1 cap - Labs Labs: 12/05/17 08:23 12/05/17 08:23 PT 12.5 SECONDS (9.7-12.2) H 12/01/17 08:34 INR 1.1 12/01/17 08:34 APTT 29 SECONDS (21-34) 12/01/17 08:34 - Additional Findings Additional findings: - Constitutional Appears: Non-toxic, No Acute Distress - Respiratory Exam Respiratory Exam: Clear to Ausculation Bilateral. absent: Respiratory Distress - Cardiovascular Exam Cardiovascular Exam: RRR, +S1, +S2 - GI/Abdominal Exam GI & Abdominal Exam: LLQ pain and flank pain absent: Distended, Soft - Extremities Exam Additional comments: no leg edema; - Neurological Exam Neurological Exam: Alert, Awake - Psychiatric Exam Psychiatric exam: Normal Mood. absent: Agitated - Skin Skin Exam: Warm. absent: Cyanosis Assessment and Plan - Assessment and Plan (Free Text) Assessment: Patient is a 72 yo female with PMH of asthma and osteporosis presenting with shortness of breath (at rest and exertion) and cough. Plan: (1) Acute renal failure Assessment & Plan: -Non-oliguric renal failure -Biopsy prelim read (12/05) shows mild tubular injury and some patchy areas of interstitial inflammation -Suspect AIN, likely from NSAID use -Stable volume status and electrolyte status -Hold on steroids- mild inflammation -Recommend outpatient followup closely for repeat BMP labs -Need to avoid all NSAIDS -Consider Renal Duplex U/S outpatient Status: Acute (2) Pyuria Assessment & Plan: -With negative urine culture (although taken after dose of abx given); -Currently on ceftriaxone due to U/A, no renal dose adjustment needed; Status: Acute
--- NOTE | 2017-12-05 11:39 | CP.PCM.DIS ---
Provider - Provider Date of Admission: 11/29/17 15:52 Attending physician: Sandrine Haq MD Primary care physician: Dr. Morales Consults: Dr. Palmer Time Spent in preparation of Discharge (in minutes): 40 Diagnosis - Discharge Diagnosis (1) Acute renal failure Status: Acute Comment: Biopsy performed, awaiting results. Patient informed to follow up outpatient w/ Dr. White. Patient stable at time for dischage. (2) Bronchitis Status: Acute Comment: Patient had dunebs Q6 and improved. (3) UTI (urinary tract infection) Status: Acute Onset Date: Comment: Patient received 5 days of ceftriaxone. And was no longer symptomatic. (4) Chest pain Status: Acute Comment: Negative for troponins, EKG no ST elevations, chest xray negative. Hospital Course - Lab Results Lab Results: Micro Results 11/30/17 15:42 Urine,Wilkinson Urine Culture - Final No Growth (<1,000 CFU/ML) Most Recent Lab Values WBC 6.7 K/uL (4.8-10.8) 12/05/17 08:23 RBC 4.41 Mil/uL (3.80-5.20) 12/05/17 08:23 Hgb 12.4 g/dL (11.0-16.0) 12/05/17 08:23 Hct 36.7 % (34.0-47.0) 12/05/17 08:23 MCV 83.4 fL (81.0-99.0) 12/05/17 08:23 MCH 28.0 pg (27.0-31.0) 12/05/17 08:23 MCHC 33.6 g/dL (33.0-37.0) 12/05/17 08:23 RDW 14.1 % (11.5-14.5) 12/05/17 08:23 Plt Count 320 K/uL (130-400) 12/05/17 08:23 MPV 8.6 fL (7.2-11.7) 12/05/17 08:23 Neut % (Auto) 76.0 % (50.0-75.0) H 12/05/17 08:23 Lymph % (Auto) 13.4 % (20.0-40.0) L 12/05/17 08:23 [place] % (Auto) 7.7 % (0.0-10.0) 12/05/17 08:23 Eos % (Auto) 2.5 % (0.0-4.0) 12/05/17 08:23 Baso % (Auto) 0.4 % (0.0-2.0) 12/05/17 08:23 Neut # (Auto) 5.1 K/uL (1.8-7.0) 12/05/17 08:23 Lymph # (Auto) 0.9 K/uL (1.0-4.3) L 12/05/17 08:23 [place] # (Auto) 0.5 K/uL (0.0-0.8) 12/05/17 08:23 Eos # (Auto) 0.2 K/uL (0.0-0.7) 12/05/17 08:23 Baso # (Auto) 0.0 K/uL (0.0-0.2) 12/05/17 08:23 Neutrophils % (Manual) 86 % (50-75) H 12/02/17 07:11 Lymphocytes % (Manual) 6 % (20-40) L 12/02/17 07:11 Monocytes % (Manual) 5 % (0-10) 12/02/17 07:11 Eosinophils % (Manual) 2 % (0-4) 12/02/17 07:11 Basophils % (Manual) 1 % (0-2) 12/02/17 07:11 Platelet Estimate Normal (NORMAL) 12/02/17 07:11 Anisocytosis (manual) Slight 12/02/17 07:11 PT 12.5 SECONDS (9.7-12.2) H 12/01/17 08:34 INR 1.1 12/01/17 08:34 APTT 29 SECONDS (21-34) 12/01/17 08:34 Sodium 142 mmol/L (132-148) 12/05/17 08:23 Potassium 4.3 mmol/L (3.6-5.2) 12/05/17 08:23 Chloride 106 mmol/L (98-107) 12/05/17 08:23 Carbon Dioxide 21 mmol/L (22-30) L 12/05/17 08:23 Anion Gap 19 (10-20) 12/05/17 08:23 BUN 71 mg/dL (7-17) H 12/05/17 08:23 Creatinine 6.2 mg/dL (0.7-1.2) H 12/05/17 08:23 Est GFR ( Amer) 8 12/05/17 08:23 Est GFR (Non-Af Amer) 7 12/05/17 08:23 Random Glucose 105 mg/dL (65-105) 12/05/17 08:23 Calcium 9.8 mg/dl (8.6-10.4) 12/05/17 08:23 Total Bilirubin 0.5 mg/dL (0.2-1.3) 12/05/17 08:23 AST 12 U/L (14-36) L 12/05/17 08:23 ALT 26 U/L (9-52) 12/05/17 08:23 Alkaline Phosphatase 105 U/L (38-126) 12/05/17 08:23 Total Creatine Kinase 38 U/L (30-135) 12/04/17 01:55 CK-MB (Mass) 0.48 ng/mL (0.0-3.38) 12/04/17 01:55 Troponin I < 0.0120 ng/mL (0.00-0.120) 12/04/17 01:55 Total Protein 7.6 g/dL (6.3-8.3) 12/05/17 08:23 Albumin 4.3 g/dL (3.5-5.0) 12/05/17 08:23 Globulin 3.3 gm/dL (2.2-3.9) 12/05/17 08:23 Albumin/Globulin Ratio 1.3 (1.0-2.1) 12/05/17 08:23 25-OH Vitamin D Total 24.7 NG/ML (30.0-100.0) L 12/02/17 09:57 PTH Intact Whole Molec 127 pg/mL (14-64) H 12/02/17 07:11 Urine Color Straw (YELLOW) 11/30/17 13:13 Urine Clarity Clear (Clear) 11/30/17 13:13 Urine pH 6.0 (5.0-8.0) 11/30/17 13:13 Ur Specific [place] 1.004 (1.003-1.030) 11/30/17 13:13 Urine Protein 1+ mg/dL (NEGATIVE) H 11/30/17 13:13 Urine Glucose (UA) Normal mg/dL (Normal) 11/30/17 13:13 Urine Ketones Negative mg/dL (NEGATIVE) 11/30/17 13:13 Urine Blood Negative (NEGATIVE) 11/30/17 13:13 Urine Nitrate Negative (NEGATIVE) 11/30/17 13:13 Urine Bilirubin Negative (NEGATIVE) 11/30/17 13:13 Urine Urobilinogen Normal mg/dL (0.2-1.0) 11/30/17 13:13 Ur Leukocyte Esterase 1+ Zahida/uL (Negative) H 11/30/17 13:13 Urine WBC (Auto) 10 /hpf (0-5) H 11/30/17 13:13 Urine RBC (Auto) < 1 /hpf (0-3) 11/30/17 13:13 Ur Squamous Epith Cells < 1 /hpf (0-5) 11/30/17 13:13 Urine Bacteria Rare (<OCC) 11/30/17 13:13 Urine Eosinophils Positive (NEGATIVE) H 11/30/17 20:22 Ur Random Creatinine 54.3 mg/dL 11/29/17 23:03 U Random Total Protein 189 mg/g creat (21-161) H 12/04/17 15:07 Ur Random Sodium 49 mmol/L 11/29/17 23:13 Ur Random Urea Nitrogn 241 mg/dL 11/29/17 23:13 Urine Collection Time 24 HRS 12/01/17 20:28 Urine Total Volume 3200 mL 12/01/17 20:28 Ur Creatinine 24 Hour 1216.0 mg/24hr (800-2800) 12/01/17 20:28 Urine Microalbumin 25.2 mg/L (0.0-16.6) H 11/29/17 23:03 Ur Total Protein 24 Hr See note mg/24 h (<150) 12/02/17 12:44 Complement C3 114.0 mg/dL (88.0-165.0) 11/30/17 20:19 Complement C4 50.1 mg/dL (14.0-44.0) H 11/30/17 20:19 Hepatitis A IgM Ab Negative (NEGATIVE) 12/01/17 19:22 Hep Bs Antigen Negative (NEGATIVE) 12/01/17 19:22 Hep B Core IgM Ab Negative (NEGATIVE) 12/01/17 19:22 Hepatitis C Antibody Negative (NEGATIVE) 12/01/17 19:22 Ur L.pneumophila Ag Negative (NEGATIVE) 11/29/17 22:29 - Hospital Course Hospital Course: HPI: 72 yr old female w/ PMHx of Asthma & Osteoporosis present to ED with 3 weeks of SOB & 1 week of dry cough. Pt states she gets dypsnea at rest & w/ activity. Additionally she can no longer walk her 6 steps as normal, getting SOB after a few steps. Pt has tried using her inhaler pump with no relief. Pt has non purulent cough for 1 weeks with this SOB. Pt states positive subjective fevers & chills. Pt also states she has fluctuating chest pain that is radiating to her arms bilateral, back & stomach that is a 6/10 at its peak. Pt denies pain with any particular activity, just variable pain throughout the day. Pt denies nausea vomiting. Pt is unable to void completely for the past several days and has had diarrhea for the past few days. Pt denies blood in urine but states there is a foul order to her urine. Pt saw PMD Monday, 11/27 and was told symptoms would self subside and to come to ED if symptoms worsened. Pt states she has not eaten for the past 3 days due to a decreased in appetite. During hospital course, patient was worked up for possible myocardial infarction as one of initial complaints was chest pain. Patient troponins was negative X3, chest Xray was negative, and EKG had no ST elevations. Patients CMP was elevated w/ creatine of 7 and BUN in 50s + and remained elevated through hospital course. Patient had a urinary wilkinson for possible retention and for monitoring urine production along with nephrology following. Patient had C4 positive at 50.4, urine eosinophils + suggestive of actue tubular necrosis vs Acute interstitial nephritis. Patient denied NSAID use at home. Patient produced adequate urine and urinary wilkinson was discharged. Patient continued to produce adequate urine w/ no other complaints. Patient Cr/ BUn remained elevated but was clinically stable and able to follow up outpatient. The above is only a summary of the patients stay in the hosptial. Please see full patient report for full details. Please see below for patient instructions upon discharge that were provided to here. Patient is stable for discharge per Dr. Haq. Patient should continue her home medications (Albuterol Sulfate (Ventolin HFa) & Albuterol 0.083% Inhaled solution (2/5g/3mL)) as previously prescribed doctor. Patient should also get a basic metabolic panel on about 12/08/17 ( Prescription will be given and can go to any laboratory services for blood service) and follow up with Dr. Tony Sims, Neurologist in approximately one week for those and biopsy results. Dr. Tony Gonzalez [address] [place] [phone] Please call in advance and make an appointment. Additionally, patient should follow up wit her primary care physician, Dr. Morales in approximately 1 to 2 weeks. Patient should return to ED immediately if symptoms return or worsen. Instructions discussed with patient who understood and agreed. Discharge Exam - Head Exam Head Exam: ATRAUMATIC, NORMAL INSPECTION, NORMOCEPHALIC - Eye Exam Eye Exam: EOMI, Normal appearance Pupil Exam: NORMAL ACCOMODATION, PERRL. absent: Fixed, Irregular - ENT Exam ENT Exam: Mucous Membranes Moist - Neck Exam Neck exam: Full Rom - Respiratory Exam Respiratory Exam: NORMAL BREATHING PATTERN, UNREMARKABLE. absent: Rales, Rhonchi, Wheezes, Respiratory Distress - Cardiovascular Exam Cardiovascular Exam: +S1, +S2. absent: Irregular Rhythm, Systolic Murmur - GI/Abdominal Exam GI & Abdominal Exam: Normal Bowel Sounds, Soft. absent: Diminished Bowel Sounds , Firm Additional comments: Patient had some abdominal pain in RLQ that is persistency improving. - Extremities Exam Additional comments: No calf tenderness, no pedal edema, peripheral pulses intact in all extremities. - Back Exam Back exam: absent: CVA tenderness (L), CVA tenderness (R) - Neurological Exam Neurological exam: Alert, CN II-XII Intact, Oriented x3 - Psychiatric Exam Psychiatric exam: Normal Affect, Normal Mood - Skin Skin Exam: Dry, Intact, Normal Color, Warm Discharge Plan - Follow Up Plan Condition: SERIOUS Disposition: HOME/ ROUTINE Instructions: Chest Pain, Kidney Biopsy, Kidney Disease Diet (For People Not on Dialysis) Additional Instructions: Patient is stable for discharge per Dr. Haq. Patient should continue her home medications (Albuterol Sulfate (Ventolin HFa) & Albuterol 0.083% Inhaled solution (2/5g/3mL)) as previously prescribed doctor. Patient should also get a basic metabolic panel on about 12/08/17 ( Prescription will be given and can go to any laboratory services for blood service) and follow up with Dr. Tony Sims, Neurologist in approximately one week for those and biopsy results. Dr. Tony Gonzalez [address] [place] [address] Please call in advance and make an appointment. Additionally, patient should follow up wit her primary care physician, Dr. Morales in approximately 1 to 2 weeks. Patient should return to ED immediately if symptoms return or worsen. Instructions discussed with patient who understood and agreed. El paciente est estable para el lorena por Dr. Haq. El paciente debe continuar con renetta medicamentos caseros (Albuterol Sulfate ( Ventolin HFa) y Albuterol 0.083% solucin inhalada (2 / 5g / 3mL)) segn lo prescrito previamente por el mdico. El paciente tambin debe recibir un panel metablico bsico aproximadamente el 08/12/17 (se le darn recetas y puede ir a cualquier servicio de laboratorio para el servicio de peter) y hacer un seguimiento con el Dr. Tony Sims, neurlogo en aproximadamente haley semana para esos y los resultados de la biopsia . Dr. Tony Gonzalez [address] [place] [address] Por favor llame con anticipacin y kimberlee haley roge. Adems, el paciente debe seguir con story mdico de atencin primaria, el Dr. Morales, en aproximadamente 1 a 2 semanas. El paciente debe regresar a la inga de urgencias inmediatamente si los sntomas reaparecen o empeoran. Instrucciones discutidas con el paciente que entendi y estuvo de acuerdo.
--- NOTE | 2017-12-05 17:53 | CARD ---
APPROVED REPORT Date of service: 12/04/2017 EKG Measurement Heart [id number] <Conclusion> Sinus rhythm with 1st degree AV block Otherwise normal ECG
== END 2017-12-05 14:10 | disposition home or self-care (01) | DRG 683 ==
LOC: C.ER 12:56 → C.9E 15:52 → EDLOC 15:52 → C.3T 16:39 → C.6T 21:31
PROVIDERS: ADMIT Internal Medicine; ATTEND Internal Medicine
PROC: BT42ZZZ Ultrasonography of Left Kidney (ICD-10-PCS; 2017-12-01)
PROC: 0TB13ZX Excision of Left Kidney, Percutaneous Approach, Diagnostic (ICD-10-PCS; principal; 2017-12-01 12:00)
DX: N17.0 Acute kidney failure with tubular necrosis (principal); E87.2 Acidosis; N10 Acute pyelonephritis; J40 Bronchitis, not specified as acute or chronic; J98.11 Atelectasis; I07.1 Rheumatic tricuspid insufficiency; I37.1 Nonrheumatic pulmonary valve insufficiency; D69.1 Qualitative platelet defects; J45.909 Unspecified asthma, uncomplicated; M81.0 Age-related osteoporosis without current pathological fracture; K59.00 Constipation, unspecified; E78.5 Hyperlipidemia, unspecified; Z90.49 Acquired absence of other specified parts of digestive tract

== ENCOUNTER 2018-08-10 06:18 | Day surgery (SDC) | payer MEDICARE, MEDICAID ==
[2018-07-31 12:24] VITALS: BMI 29.2
[~2018-08-10 06:18] MED LIST: Dexamethasone 4 mg/1 ml ONE; Lidocaine 2% MPF (5 ml) Inj ONE; ceFAZolin 1 gm in NS 1 GM/100 ML BAG IVPB ONE
[2018-08-10] MEDS ORDERED: Bacitracin Ointment 30 GM TUBE ONE (06:19)
[2018-08-10] MEDS ORDERED: Triamcinolone Acetonide 40 mg/mL Inj ONE (06:19)
[2018-08-10] MEDS ORDERED: Midazolam 2 MG/2 ML VIAL ONE (07:50)
[2018-08-10] MEDS: Bupivacaine HCl 0.5% PF (10 ml) Inj ONE ×2 (07:50→08:34)
[2018-08-10] MEDS ORDERED: Propofol 10 mg/ml Inj (20 ML) ONE (07:54)
[2018-08-10] MEDS ORDERED: Bupivacaine HCl 0.5% PF (10 ml) Inj ONE (08:36)
[2018-08-10] MEDS ORDERED: Oxycodone/Acetaminophen 5/325 mg Tab PO PRN ×3 (08:45→08:54)
--- NOTE | 2018-08-10 08:52 | PCM.SURG1 ---
Surgeon's Initial Post Op Note - Surgeon's Notes Surgeon: Dr. Orestes Padilla. DPM Jinrikisha Driver: Dr. Isrrael Navarro. PGY2, Dr. Bob bear. PGY1 Type of Anesthesia: IV Sedation, Local Anesthesia Administered By: Dr. Simental Pre-Operative Diagnosis: 1- Left foot Hallux valgus. 2- Left foot painful Heel spur. Operative Findings: See Dictation. Materials: 2-0 Vicryl, 3-0 Vicryl, 3-0 Nylon. Injectables: - 20 cc of 1:1 mixture of lidocaine 2% plain and marcaine 0.5% plain in a Gillespie block fashion. - 4 cc of marcaine 0.5% plain for postoperative analgesia. - Mixture od 2 mg decadron and 20 mg kenalog to the left heel. Post-Operative Diagnosis: 1- Left foot Hallux valgus. 2- Left foot painful Heel spur. Operation Performed: 1- Left Boyd bunionectomy. 2- Left heel spur steroid injection. Specimen/Specimens Removed: - Left 1st MPJ medial eminence. Estimated Blood Loss: EBL {In ML}: 1 Blood Products Given: N/A Drains Used: No Drains Post-Op Condition: Good Date of Surgery/Procedure: 08/10/18 Time of Surgery/Procedure: 08:54
[2018-08-10] MEDS ORDERED: HYDROmorphone 0.5 mg/0.5 ml ISec IVP PRN (09:08)
[2018-08-10] MEDS ORDERED: Lactated Ringer's 1,000 ML IV SCH (09:15)
[2018-08-10 11:09] VITALS: BP 127/66; PULSE 61; RESP 18; TEMP 97; O2SAT 96
--- NOTE | 2018-08-10 11:17 | RAD ---
Date of service: 08/10/2018 PROCEDURE: Left Foot Radiographs. HISTORY: s/p left foot surgery COMPARISON: None. FINDINGS: BONES: Status post bunionectomy. No fracture. JOINTS: Normal. SOFT TISSUES: Normal. OTHER FINDINGS: None. IMPRESSION: Status post bunionectomy.
--- NOTE | 2018-08-13 00:02 | PCM.OP ---
Operative Report - Operative Report Date of Surgery/Procedure: 08/10/18 Time of Surgery/Procedure: 08:00 Surgeon: Dr. Marshall DPM Resident Athletic Trainer: Dr. Isrrael Navarro PGY-2, Dr. Bob Mendoza PGY-1 Anesthesia/Sedation: Dr. Simental, IV sedation with local Pre-Operative Diagnosis: - Left foot Hallux valgus. 2- Left foot painful Heel spur. Post-Operative Diagnosis: - Left foot Hallux valgus. 2- Left foot painful Heel spur. Indication for Surgery: Indications: The patient is a 72 year-old female with the above diagnoses. The patient has exhausted all conservative treatment at this time such as at home physical therapy, strapping, taping, modified shoe gear, oral antiinflammatories. The patient now request surgical intervention.The patient signed the consent after careful explanation of risks, benefits, complication and alternatives for surgical procedure. No guarantees were given nor implied. NPO status was confirmed prior to taking patient to the OR. Operative Findings: see procedure note Procedure/Operation Description: Preparation: The patient was brought in to the operating room and placed on the operating room table in a supine position. Timeout was performed for identification of the correct patient and procedures. A well-padded pneumatic ankle tourniquet was placed to the patient'sleft and right ankle in a supramalleolar position. After IV sedation is administered, a local injection consisting total of 20cc of 1:1 mixture of 1% lidocaine plain and 0.5% marcaine plain was introduced in a Gillespie block fashion to left foot . The left foot was then prepped and draped in normal sterile manner and the procedure began. Esmarch was utilized to exsanguinate the patient's left lower extremity. Pneumatic ankle tourniquet was then inflated to 250 mmHg to the lower extremity and the procedures began. 1. Procedure 1: Left foot Boyd bunionectomy with cutting of bone and soft tissue Attention was then directed to the dorsal aspect of the first metatarsal head, right foot where an approximately 6 cm linear longitudinal incision was made medial and parallel to the tendon of the extensor hallucis longus and involved the contour of the deformity. The incision was deepened through the subcutaneous tissues using sharp and blunt dissection. Care was taken to identify and retract all vital neurovascular structures. All bleeders were cauterized and ligated as necessary. At this time, an inverted L type capsulotomy was performed over the dorsal aspect of the first metatarsophalangeal joint. The periosteal and capsular structures were then carefully dissected free of their osseous attachments and reflected medially and laterally thus exposing the head of the first metatarsal into the operative site. Next utilizing a sagittal bone saw, the dorsal and medial prominences were resected. All rough edges were then s moothed down with the sagittal bone saw. Correction of the deformity was assessed at this time and was noted to the excellent. The wound was then flushed with copious amount of sterile normal saline solution. The periosteal and capsular structures were then reapproximated and coapted utilizing #2-0 vicryl. Redundant capsular tissues were resected as necessary. The deep layers were closed using #3-0 vicryl. The subcuitcular tissue and skin was then reapproximated and coapted utilizing #3-0 nylon in an alternating simple and horizontal interrupted stitch pattern. Additional 4cc of marcaine 0.5% plain for postoperative analgesia to the incision site. 2- Left heel spur steroid injection. Next attention was directed to the posterior aspect of the left heel. Mixture of 2 mg decadron and 20 mg kenalog was into to the posterior aspect of the left heel at the patients most painful sites. Care was taken to avoid Achilles tendon and its insertion into the calcaneus. Surgical sites of left was then dressed with bacitracin, adapatic, dsd, and RED to left foot. Estimated Blood Loss: 1 cc Complications: none Discharge & Condition: Postoperative Condition: The patient tolerated the anesthesia and procedure well and was escorted to the recovery room with vital signs stable and neurovascular status intact to left lower extremity. Patient will follow up with Dr. Marshall in office within 1 week.
== END 2018-08-10 11:55 | disposition home or self-care (01) ==
LOC: C.SDS 06:18
PROVIDERS: ATTEND Podiatrist Foot & Ankle Surgery
DX: M20.12 Hallux valgus (acquired), left foot (principal); M77.32 Calcaneal spur, left foot
CPT/HCPCS: 28296; 73630; 88304; J0690; J1100; J2250; J2704; J3010; J3301